=== PATIENT | male | born 1950 | race Caucasian/White ===

== ENCOUNTER 2017-01-13 17:37 | Outpatient (CLI) | payer MEDICARE, OTHER ==
[2017-01-13 13:32] LABS: BASOPHILS # (AUTO) 0.1 10^3/uL (0.0-0.1); BASOPHILS % (AUTO) 2.3 %; EOSINOPHILS # (AUTO) 0.1 10^3/uL (0.0-0.7); EOSINOPHILS % (AUTO) 2.7 %; HGB - HEMOGLOBIN 15.1 g/dL (14.0-18.0); LYMPHOCYTES # (AUTO) 1.4 10^3/uL (1.5-3.5); LYMPHOCYTES % (AUTO) 27.4 %; MEAN CORPUSCULAR HEMOGLOBIN 30.6 pg (27.0-31.0); MEAN CORPUSCULAR HGB CONC 34.4 g/dL (32.0-36.0); MEAN CORPUSCULAR VOLUME 89.1 fL (80.0-94.0); MEAN PLATELET VOLUME 8.1 fL (7.4-11.4); MONOCYTES # (AUTO) 0.5 10^3/uL (0.0-1.0); MONOCYTES % (AUTO) 10.6 %; NEUTROPHILS # (AUTO) 2.8 10^3/uL (1.5-6.6); NUCLEATED RED BLOOD CELLS AUTO 0.2 /100WBC; RED BLOOD COUNT 4.94 10^6/uL (4.70-6.10); RED CELL DISTRIBUTION WIDTH 13.6 % (12.0-15.0)
[2017-01-13 13:43] LABS: ALBUMIN/GLOBULIN RATIO 1.3 (1.0-2.2); BILIRUBIN,TOTAL 0.8 mg/dL (0.2-1.0); BUN - BLOOD UREA NITROGEN 18 mg/dL (6-20); CALCIUM 8.9 mg/dL (8.5-10.3); CARBON DIOXIDE - CO2 29 mmol/L (21-32); CHLORIDE 108 mmol/L (101-111); CHOL/HDL RATIO 3.6 (<5.0); CHOLESTEROL 155 mg/dL; CREATININE 0.8 mg/dL (0.6-1.2); GFR - MDRD 96 (>89); GLUCOSE 118 mg/dL (70-100); HDL CHOLESTEROL 43 mg/dL; POTASSIUM 4.3 mmol/L (3.5-5.0); SODIUM 141 mmol/L (135-145); TOTAL PROTEIN 7.4 g/dL (6.7-8.2); TRIGLYCERIDES 136 mg/dL; URIC ACID 5.8 mg/dL (2.6-7.2); VLDL CHOLESTEROL 27 mg/dL
[2017-01-13 14:07] LABS: HEMOGLOBIN A1C 0.64 g/dL
== END 2017-01-13 17:38 | disposition home or self-care (01) ==
LOC: LAB.WCP 17:37
PROVIDERS: ATTEND Family Medicine
DX: R73.01 Impaired fasting glucose (principal); E78.5 Hyperlipidemia, unspecified; Z12.5 Encounter for screening for malignant neoplasm of prostate; E03.9 Hypothyroidism, unspecified; M10.00 Idiopathic gout, unspecified site; I10 Essential (primary) hypertension
CPT/HCPCS: 36415; 80053; 80061; 83036; 84443; 84550; 85025; G0103; 84153

== ENCOUNTER 2017-02-23 09:07 | Day surgery (SDC) | payer MEDICARE, OTHER ==
[2017-02-23] MEDS ORDERED: LACTATED RINGERS 1,000 ML IV ONE (09:27)
[2017-02-23] MEDS ORDERED: MIDAZOLAM 2 MG/2 ML VIAL IVP ONE (10:08)
[2017-02-23] MEDS ORDERED: fentaNYL 100 MCG/2 ML VIAL IVP ONE (10:08)
--- NOTE | 2017-02-23 11:07 | PROCEDURE REPORT ---
DATE OF PROCEDURE: 02/23/2017 00:00:00 PROCEDURE PERFORMED: Colonoscopy with polypectomy. ENDOSCOPIST: Aster Redmond MD. PRIMARY CARE: Peter Bond MD. INDICATION: History of polyps. PREMEDICATIONS: Fentanyl 100 mcg, Versed 6 mg IV titration. TOTAL SEDATION TIME: 32 minutes. After informed consent was obtained, the patient was placed in left lateral decubitus position. The v ideo colonoscope was introduced in the rectum, slowly advanced to the cecum. On slow withdrawal, muco sa was carefully examined. The patient tolerated the procedure well. BLOOD LOSS: None. COMPLICATIONS: None. FINDINGS 1. A 4 mm polyp at the hepatic flexure jumbo biopsied and removed completely. 2. An 8 mm polyp at 50 cm, cold snared and removed completely and retrieved. 3. An 8 mm polyp at 30 cm, cold snared and removed completely and retrieved. The patient will be informed of specimen findings, but almost certainly will need followup colonoscop y in 3 years. JOB #: [id number] EXT JOB #:[id number]
[2017-02-23 11:36] VITALS: BP 134/71
== END 2017-02-23 09:08 | disposition home or self-care (01) ==
LOC: SDS 09:07
PROVIDERS: ATTEND Internal Medicine Gastroenterology
PROC: 0DBN8ZX Excision of Sigmoid Colon, Via Natural or Artificial Opening Endoscopic, Diagnostic (ICD-10-PCS; 2017-02-23)
PROC: 0DBE8ZX Excision of Large Intestine, Via Natural or Artificial Opening Endoscopic, Diagnostic (ICD-10-PCS; principal; 2017-02-23 10:00)
DX: D12.5 Benign neoplasm of sigmoid colon (principal); D12.3 Benign neoplasm of transverse colon
CPT/HCPCS: 45380; 45385; 88305; J7120

== ENCOUNTER 2017-07-16 09:27 | Outpatient (CLI) | payer MEDICARE, OTHER ==
--- NOTE | 2017-07-16 18:38 | CT Report ---
EXAM: CT CHEST EXAM DATE: 07/16/2017 09:54 AM. CLINICAL HISTORY: COUGH, CHRONIC. COMPARISONS: None. TECHNIQUE: Routine helical CT imaging was performed through the chest. IV contrast: None. Reconstruct ions: Coronal and sagittal. In accordance with CT protocol optimization, one or more of the following dose reduction techniques w ere utilized for this exam: automated exposure control, adjustment of mA and/or KV based on patient s ize, or use of iterative reconstructive technique. FINDINGS: Detail is limited by motion artifact. Lungs/Pleura: Lungs are well expanded. There is increased AP diameter chest. There is no evidence of consolidation or effusion. No suspicious lung nodules are seen. There is some mild scarring within th e left lung base. There is focal calcification along the left diaphragm. This could be from prior inf ection or trauma. No central airway abnormalities are seen. No pneumothorax. Mediastinum: There is mild aneurysmal dilatation of the ascending thoracic aorta. It measures 4.2 cm in maximal AP diameter. Heart size is normal. There are coronary artery calcifications. There are no enlarged thoracic lymph nodes. Bones: No acute bony abnormalities are seen. Visualized Abdomen: Unremarkable. Other: None. IMPRESSION: 1. No acute or chronic pulmonary process to account for the patient's presentation. 2. There is mild scarring within the left lung base adjacent to some coarse diaphragmatic calcificati on. This may be from prior infection or trauma. 3. There is mild aneurysmal dilatation of the ascending thoracic aorta. It measures 4.2 cm in maximal AP diameter. [facility] Referring Provider Line: [phone] SITE ID: [id number]
== END 2017-07-16 09:28 | disposition home or self-care (01) ==
LOC: DI 09:27
PROVIDERS: ATTEND Family Medicine
DX: R05 Cough (principal); I71.2 Thoracic aortic aneurysm, without rupture
CPT/HCPCS: 71250

== ENCOUNTER 2017-08-29 08:00 | Outpatient (CLI) | payer MEDICARE, OTHER ==
[2017-08-29 13:07] LABS: CALCIUM 9.1 mg/dL (8.5-10.3); CREATININE 0.9 mg/dL (0.6-1.2)
== END 2017-08-29 08:01 | disposition home or self-care (01) ==
LOC: LAB.WCP 08:00
PROVIDERS: ATTEND Family Medicine
DX: I10 Essential (primary) hypertension (principal)
CPT/HCPCS: 36415; 80048

== ENCOUNTER 2018-02-20 10:33 | Outpatient (CLI) | payer MEDICARE, OTHER ==
[2018-02-20 19:06] LABS: BASOPHILS # (AUTO) 0.1 10^3/uL (0.0-0.1); BASOPHILS % (AUTO) 1.6 %; EOSINOPHILS # (AUTO) 0.1 10^3/uL (0.0-0.7); EOSINOPHILS % (AUTO) 2.4 %; HGB - HEMOGLOBIN 14.6 g/dL (14.0-18.0); LYMPHOCYTES # (AUTO) 1.2 10^3/uL (1.5-3.5); MEAN CORPUSCULAR HGB CONC 34.2 g/dL (32.0-36.0); MEAN CORPUSCULAR VOLUME 90.8 fL (80.0-94.0); MEAN PLATELET VOLUME 8.3 fL (7.4-11.4); MONOCYTES # (AUTO) 0.5 10^3/uL (0.0-1.0); MONOCYTES % (AUTO) 9.8 %; NEUTROPHILS # (AUTO) 3.2 10^3/uL (1.5-6.6); NEUTROPHILS % (AUTO) 63.2 %; PLT - PLATELET COUNT 233 10^3/uL (130-450); RED CELL DISTRIBUTION WIDTH 13.4 % (12.0-15.0); WHITE BLOOD COUNT 5.1 x10^3/uL (4.8-10.8)
[2018-02-20 19:17] LABS: ALBUMIN 4.3 g/dL (3.2-5.5); ALBUMIN/GLOBULIN RATIO 1.7 (1.0-2.2); ALKALINE PHOSPHATASE 64 IU/L (42-121); ALT ALANINE AMINOTRANSFERASE 29 IU/L (10-60); AST ASPARTATE AMINOTRANSFERASE 26 IU/L (10-42); BILIRUBIN,TOTAL 0.7 mg/dL (0.2-1.0); BUN - BLOOD UREA NITROGEN 7 mg/dL (6-20); CALCIUM 9.2 mg/dL (8.5-10.3); CARBON DIOXIDE - CO2 30 mmol/L (21-32); CHLORIDE 103 mmol/L (101-111); CHOL/HDL RATIO 2.2 (<5.0); CHOLESTEROL 92 mg/dL; CREATININE 0.8 mg/dL (0.6-1.2); GFR - MDRD 96 (>89); GLUCOSE 105 mg/dL (70-100); HDL CHOLESTEROL 42 mg/dL; LDL CHOLESTEROL,CALCULATED 36 mg/dL; LDL/HDL RATIO 0.9 (<3.6); SODIUM 141 mmol/L (135-145); TOTAL PROTEIN 6.9 g/dL (6.7-8.2); VLDL CHOLESTEROL 14 mg/dL
[2018-02-20 19:18] LABS: HB2 TOTAL 15.7 g/dL; HEMOGLOBIN A1C 0.58 g/dL; HEMOGLOBIN A1C % 5.5 % (4.6-6.2); PSA SCREEN (Z12.5) 0.747 ng/mL (0.000-2.000)
[2018-02-20 19:22] LABS: FREE T3 2.91 pg/mL (2.5-3.9)
[2018-02-20 19:23] LABS: THYROID STIMULATING HORMONE 1.44 uIU/mL (0.34-5.60)
[2018-02-20 19:25] LABS: FREE T4 (FREE THYROXINE) 0.75 ng/dL (0.58-1.64)
== END 2018-02-20 10:34 | disposition home or self-care (01) ==
LOC: LAB.WCP 10:33
PROVIDERS: ATTEND Family Medicine
DX: R73.01 Impaired fasting glucose (principal); I10 Essential (primary) hypertension; Z12.5 Encounter for screening for malignant neoplasm of prostate; E78.5 Hyperlipidemia, unspecified; E03.9 Hypothyroidism, unspecified
CPT/HCPCS: 36415; 80053; 80061; 83036; 84439; 84443; 84481; 85025; G0103; 83721; 84153

== ENCOUNTER 2018-08-28 11:00 | Outpatient (CLI) | payer MEDICARE, OTHER ==
--- NOTE | 2018-08-28 12:38 | XRAY Report ---
Reason: URI Procedure Date: 08/28/2018 Accession Number: [id number] / [id number] Procedure: XR - Chest 2 View X-Ray CPT Code: 10460 FULL RESULT: EXAM: CHEST RADIOGRAPHY EXAM DATE: 08/28/2018 11:12 AM. CLINICAL HISTORY: Upper respiratory infection. COMPARISON: CHEST 2 VIEW PA/LAT 06/30/2017 8:30 AM. TECHNIQUE: 2 views. FINDINGS: Lungs/Pleura: No focal opacities evident. No pleural effusion. No pneumothorax. Normal volumes. Mediastinum: Stable appearance of the cardiomediastinal silhouette, reportedly with known thoracic aneurysm. Other: None. IMPRESSION: No acute airspace disease. [facility]
== END 2018-08-28 11:01 | disposition home or self-care (01) ==
LOC: DI 11:00
PROVIDERS: ATTEND Physician Assistant Medical
DX: J06.9 Acute upper respiratory infection, unspecified (principal)
CPT/HCPCS: 71046

== ENCOUNTER 2019-01-03 17:00 | Observation (INO) | payer MEDICARE, OTHER ==
[2019-01-03 17:40] LABS: BASOPHILS # (AUTO) 0.1 10^3/uL (0.0-0.1); BASOPHILS % (AUTO) 0.5 %; LYMPHOCYTES # (AUTO) 0.7 10^3/uL (1.5-3.5); LYMPHOCYTES % (AUTO) 5.3 %; MEAN CORPUSCULAR HEMOGLOBIN 30.8 pg (27.0-31.0); MEAN CORPUSCULAR HGB CONC 34.4 g/dL (32.0-36.0); MEAN CORPUSCULAR VOLUME 89.4 fL (80.0-94.0); MEAN PLATELET VOLUME 9.2 fL (7.4-11.4); MONOCYTES # (AUTO) 0.5 10^3/uL (0.0-1.0); MONOCYTES % (AUTO) 3.5 %; NEUTROPHILS # (AUTO) 11.6 10^3/uL (1.5-6.6); NEUTROPHILS % (AUTO) 90.2 %; PLT - PLATELET COUNT 245 10^3/uL (130-450); RED CELL DISTRIBUTION WIDTH 13.1 % (12.0-15.0); WHITE BLOOD COUNT 12.9 x10^3/uL (4.8-10.8)
[2019-01-03 17:56] LABS: ALBUMIN 4.6 g/dL (3.2-5.5); ALBUMIN/GLOBULIN RATIO 1.4 (1.0-2.2); BILIRUBIN,TOTAL 0.7 mg/dL (0.2-1.0); CREATININE 0.8 mg/dL (0.6-1.2)
[2019-01-03] MEDS ORDERED: ONDANSETRON 4 MG/2 ML VIAL IVP STA (18:21)
[2019-01-03] MEDS ORDERED: SODIUM CHLORIDE 0.9% 1,000 ML IV ONE ×2 (18:21)
[2019-01-03] MEDS ORDERED: HYDROmorphone 1 MG/ML CARPUJECT IVP STA (18:21)
--- NOTE | 2019-01-03 18:22 | ED Physician Documentation ---
PD HPI ABD PAIN - Stated complaint Stated Complaint: VOM/FEVER - Chief complaint Chief Complaint: Abd Pain - History obtained from History obtained from: Patient, Family () - History of Present Illness Timing - onset: Other (68-year-old gentleman with long-standing history of umbilical hernia started vomiting at 10:00 this morning and has noted absent bowel movements and flatulence since then. He is vomited about 10-12 times. He has left and central abdominal pain. No history of abdominal surgeries.) Review of Systems Ten Systems: 10 systems reviewed and negative Constitutional: denies: Fever, Chills Respiratory: reports: Reviewed and negative GI: reports: Abdominal Pain, Nausea, Vomiting. denies: Diarrhea, Hematemesis, Bloody / black stool : denies: Dysuria, Frequency PD PAST MEDICAL HISTORY - Past Medical History Past Medical History: Yes Cardiovascular: Hypertension, Other Respiratory: None Endocrine/Autoimmune: HyPOthyroidism GI: None : None HEENT: None Psych: None Musculoskeletal: Gout Derm: None Other Past Medical History: THoracic aneurysm - Past Surgical History Past Surgical History: Yes General: Colonoscopy HEENT: Detached retina repair - Present Medications Home Medications: Ambulatory Orders Medication Instructions Recorded Confirmed Allopurinol 2 tab PO DAILY 02/01/14 02/23/17 Levothyroxine [Synthroid] 125 mcg PO QDAC 02/01/14 02/23/17 Aspirin [Aspir 81] 81 mg PO DAILY 02/04/14 02/23/17 Cholecalciferol (Vitamin D3) 1,000 unit PO DAILY 02/04/14 07/17/14 [Vitamin D3] Chromium 200 mcg PO DAILY 02/04/14 07/17/14 Garlic 2,500 mg PO DAILY 02/04/14 07/17/14 Vitamin B Complex [Vitamin B-100 1 each PO DAILY 02/04/14 07/17/14 Complex] Amlodipine Besylate 10 mg QPM 01/03/19 01/03/19 Atorvastatin Calcium 40 mg QPM 01/03/19 01/03/19 Losartan Potassium [Cozaar] 100 mg DAILY 01/03/19 01/03/19 - Allergies Allergies/Adverse Reactions: Allergies Allergy/AdvReac Type Severity Reaction Status Date / Time No Known Drug Allergies Allergy Verified 01/03/19 17:14 - Living Situation Living Situation: reports: With spouse/s.o. - Social History Does the pt smoke?: No Smoking Status: Never smoker - Family History Family history: reports: Non contributory PD ED PE NORMAL - Vitals Vital signs reviewed: Yes - General General: Alert and oriented X 3, No acute distress - HEENT HEENT: PERRL, EOMI - Neck Neck: Supple, no meningeal sign, No bony TTP - Cardiac Cardiac: RRR, No murmur - Respiratory Respiratory: No respiratory distress, Clear bilaterally - Abdomen Abdomen: Other (Soft belly but there is a clearly incarcerated large umbilical hernia that I am unable to reduce during examination, it is tender with absent bowel tones.) - Back Back: No CVA TTP, No spinal TTP - Derm Derm: Normal color, Warm and dry - Extremities Extremities: No edema, No calf tenderness / cord - Neuro Neuro: Alert and oriented X 3, Normal speech Results - Vitals Vitals: Vital Signs - 24 hr 01/03/19 17:08 Temperature 36.2 C L Heart Rate 78 Respiratory 20 Rate Blood Pressure 166/77 H O2 Saturation 95 Oxygen O2 Source Room air - EKG (time done) 1834 Rate: Rate (enter#) (58) Rhythm: NSR [place]: Normal Intervals: Normal ID QRS: LVH Ischemia: Non specific changes Computer interpretation: Agree with computer - Labs Labs: Laboratory Tests 01/03/19 01/03/19 17:34 17:34 WBC 12.9 H RBC 5.20 Hgb 16.0 Hct 46.5 MCV 89.4 MCH 30.8 MCHC 34.4 RDW 13.1 Plt Count 245 MPV 9.2 Neut # (Auto) 11.6 H Lymph # (Auto) 0.7 L [place] # (Auto) 0.5 Eos # (Auto) 0.0 Baso # (Auto) 0.1 Absolute Nucleated RBC 0.00 Nucleated RBC % 0.0 Sodium 144 Potassium 4.2 Chloride 104 Carbon Dioxide 25 Anion Gap 15.0 H BUN 17 Creatinine 0.8 Estimated GFR (MDRD) 96 Glucose 156 H Calcium 10.0 Total Bilirubin 0.7 AST 26 ALT 29 Alkaline Phosphatase 79 Total Protein 8.0 Albumin 4.6 Globulin 3.4 Albumin/Globulin Ratio 1.4 Lipase 22 PD MEDICAL DECISION MAKING - ED course ED course: This is a very pleasant 68-year-old gentleman who presents with a clearly incarcerated small bowel obstruction due to a hernia. I spoke with the on-call surgeon, Dr. Menjivar after my evaluation and she will be in to see the patient and likely take him to the operating room. Departure - Departure Disposition: ED Transfer to [facility] Clinical Impression: Incarcerated umbilical hernia, Small bowel obstruction Condition: Serious
[2019-01-03] MEDS ORDERED: ceFAZolin 2 GM in SODIUM CHLORIDE 0.9% 100ML 100 ML IV STA (18:39)
--- NOTE | 2019-01-03 18:54 | HISTORY & PHYSICAL EXAMINATION ---
HPI - Admitted From Admitted from: ED - History Obtained From Records Reviewed: RN notes reviewed, Old records reviewed History obtained from: Patient Exam limitations: No limitations - History of Present Illness Pain/Problem Location Description: Abdominal pain with nausea and vomiting Severity at the worst: reports: Moderate Pain Quality: reports: Aching, Cramping Context-Pain started w/: reports: Rest Timing: reports: Abrupt onset Duration: reports: Hours: (8 hours) Improved with: reports: Rest, Nothing Worsened by: reports: Inspiration, Movement, Palpation Associated symptoms: reports: Nausea, Vomiting HPI Comment/Other: Quirino is a very pleasant man who presented to the ED with complaint of nausea and vomiting. He reports a long history of an umbilical hernia. He noted this morning that it was "stuck in place" and he began to feel nauseated and vomit. He reports he has vomited 12 times since it started this morning around 10 AM. He denies any sick contacts. He denies any fever. PMH/PSH - Past Medical History Cardiovascular: positive: Hypertension, Other Respiratory: positive: None Endocrine/Autoimmune: positive: HyPOthyroidism GI: positive: None : positive: None HEENT: positive: None Psych: positive: None Musculoskeletal: positive: Gout Derm: positive: None MRSA Hx?: No Other Past Medical History: THoracic aneurysm - Past Surgical History General: positive: Colonoscopy HEENT: positive: Detached retina repair Social & Family Hx - Social History Does the pt smoke?: No Smoking Status: Never smoker - POLST POLST Status: Full Code Meds/Allgy - Home Medications Home Medications: Ambulatory Orders Medication Instructions Recorded Confirmed Allopurinol 2 tab PO DAILY 02/01/14 02/23/17 Levothyroxine [Synthroid] 125 mcg PO QDAC 02/01/14 02/23/17 Aspirin [Aspir 81] 81 mg PO DAILY 02/04/14 02/23/17 Cholecalciferol (Vitamin D3) 1,000 unit PO DAILY 02/04/14 07/17/14 [Vitamin D3] Chromium 200 mcg PO DAILY 02/04/14 07/17/14 Garlic 2,500 mg PO DAILY 02/04/14 07/17/14 Vitamin B Complex [Vitamin B-100 1 each PO DAILY 02/04/14 07/17/14 Complex] Amlodipine Besylate 10 mg QPM 01/03/19 01/03/19 Atorvastatin Calcium 40 mg QPM 01/03/19 01/03/19 Losartan Potassium [Cozaar] 100 mg DAILY 01/03/19 01/03/19 - Allergies Allergies/Adverse Reactions: Allergies Allergy/AdvReac Type Severity Reaction Status Date / Time No Known Drug Allergies Allergy Verified 01/03/19 17:14 Review of Systems - Constitutional Constitutional: denies: Fever, Chills - Eyes Eyes: denies: Pain, Irritation, Blurred vision - Ears, Nose & Throat Ears, Nose & Throat: denies: Tinnitus, Vertigo - Cardiovascular Cariovascular: denies: Irregular heart rate, Palpitations, Chest pain, Edema, Lightheadedness - Respiratory Respiratory: denies: Cough, Wheezing, SOB at rest - Gastrointestinal Gastrointestinal: reports: Abdominal pain, Abdominal distention, Nausea, Vomiting, Bile emesis. denies: Tee blood emesis, Coffee grounds emesis, Reflux/heartburn - Genitourinary Genitourinary: denies: Dysuria, Frequency, Urgency - Musculoskeletal Musculoskeletal: denies: Muscle pain, Back pain, Muscle aches, Stiffness - Integumentary Integumentary: denies: Rash, Pruritis, Lesions - Neurological Neurological: denies: General weakness, Focal weakness - Psychiatric Psychiatric: denies: Depression, Anxiety - Hematologic/Lymphatic Hematologic/Lymphatic: denies: Anemia, Bruising - All Other Systems All Other Systems: reports: Reviewed and negative Exam - Vital Signs Reviewed Vital Signs: Yes Vital Signs: Vital Signs x48h Temp Pulse Resp BP Pulse Ox 01/03/19 17:08 36.2 C L 78 20 166/77 H 95 - Physical Exam General Appearance: positive: Mild distress Eyes Bilateral: positive: Normal inspection, PERRL, EOMI ENT: positive: ENT inspection nml, Pharynx nml, No signs of dehydration Neck: positive: Nml inspection, Thyroid nml, No JVD, Trachea midline Respiratory: positive: Chest non-tender, No respiratory distress, Breath sounds nml Cardiovascular: positive: Regular rate & rhythm, No murmur Peripheral Pulses: positive: 1+, 0, Other (Well perfused and without evidence of ischemia or tissue loss) Abdomen: positive: Tenderness, Mass (Obvious umbilical hernia with incarcerated contents. Bowel sounds over the hernia), Abnml bowel sounds. negative: Guarding, Rebound, Bruit Back: positive: Nml inspection. negative: CVA tenderness (R), CVA tenderness (L) Skin: positive: Color nml Extremities: positive: Non-tender Neurologic/Psychiatric: positive: Oriented x3, CN's nml (2-12) Results - Lab Results Fish Bones: 01/03/19 17:34 01/03/19 17:34 Other Lab Results: Lab Results x24hrs 01/03/19 01/03/19 Range/Units 17:34 17:34 WBC 12.9 H (4.8-10.8) x10^3/uL RBC 5.20 (4.70-6.10) 10^6/uL Hgb 16.0 (14.0-18.0) g/dL Hct 46.5 (42.0-52.0) % MCV 89.4 (80.0-94.0) fL MCH 30.8 (27.0-31.0) pg MCHC 34.4 (32.0-36.0) g/dL RDW 13.1 (12.0-15.0) % Plt Count 245 (130-450) 10^3/uL MPV 9.2 (7.4-11.4) fL Neut # (Auto) 11.6 H (1.5-6.6) 10^3/uL Lymph # (Auto) 0.7 L (1.5-3.5) 10^3/uL [place] # (Auto) 0.5 (0.0-1.0) 10^3/uL Eos # (Auto) 0.0 (0.0-0.7) 10^3/uL Baso # (Auto) 0.1 (0.0-0.1) 10^3/uL Absolute Nucleated RBC 0.00 x10^3/uL Nucleated RBC % 0.0 /100WBC Sodium 144 (135-145) mmol/L Potassium 4.2 (3.5-5.0) mmol/L Chloride 104 (101-111) mmol/L Carbon Dioxide 25 (21-32) mmol/L Anion Gap 15.0 H (6-13) BUN 17 (6-20) mg/dL Creatinine 0.8 (0.6-1.2) mg/dL Estimated GFR (MDRD) 96 (>89) Glucose 156 H (70-100) mg/dL Calcium 10.0 (8.5-10.3) mg/dL Total Bilirubin 0.7 (0.2-1.0) mg/dL AST 26 (10-42) IU/L ALT 29 (10-60) IU/L Alkaline Phosphatase 79 (42-121) IU/L Total Protein 8.0 (6.7-8.2) g/dL Albumin 4.6 (3.2-5.5) g/dL Globulin 3.4 (2.1-4.2) g/dL Albumin/Globulin Ratio 1.4 (1.0-2.2) Lipase 22 (22-51) U/L - Diagnostic Imaging Results Diagnostic Imaging Results Comments: No imaging required on the hernia. Chest xray is pending. Impression/Plan - Problem List Problem List: Incarcerated umbilical hernia with small bowel obstruction. We have discussed the risks and benefits of repair of the hernia and correction of the bowel obstruction. The patient has expressed understanding of the risks and a desire to complete the procedure. We will proceed to the operating room as soon as available.
--- NOTE | 2019-01-03 19:18 | XRAY Report ---
Reason: preop Procedure Date: 01/03/2019 Accession Number: [id number] / [id number] Procedure: XR - Chest 1 View X-Ray CPT Code: 12993 FULL RESULT: EXAM: CHEST RADIOGRAPHY EXAM DATE: 01/03/2019 06:54 PM. CLINICAL HISTORY: Preop. COMPARISON: CHEST 2 VIEW 08/28/2018 11:07 AM CHEST W/O 07/16/2017 9:45 AM. TECHNIQUE: 1 view. FINDINGS: Lungs/Pleura: No dense consolidation. No large effusion or pneumothorax. No pulmonary edema. Mediastinum: Heart and mediastinal contours are unremarkable. Other: None. IMPRESSION: No acute radiographic pulmonary abnormalities. [facility]
[2019-01-03] MEDS ORDERED: BUPIVACAINE 0.5%-EPI 1:200000 PF 30 ML VIAL ONE (20:09)
[2019-01-03] MEDS ORDERED: LIDOCAINE MPF 1%-EPI 1:200000 30 ML VIAL ONE (20:09)
[2019-01-03] MEDS ORDERED: BUPIVACAINE 0.5% PF 10 ML VIAL ONE (20:11)
--- NOTE | 2019-01-03 20:45 | ANESTHESIA ---
Pre-Anesthesia VS, & Labs - Diagnosis incarcerated umbilical hernia - Procedure Umbilical hernia repair with reduction of incarcerated bowel Vital Signs: Temp Pulse Resp BP Pulse Ox 37.0 C 68 15 140/69 H 96 01/03/19 18:51 01/03/19 18:51 01/03/19 18:51 01/03/19 18:51 01/03/19 18:51 Height 5 ft 9 in Weight (kg) 133.81 kg Body Mass Index 43.5 - NPO Last Food Intake: 0900 - Lab Results Current Lab Results: Laboratory Tests 01/03/19 17:34: Sodium 144, Potassium 4.2, Chloride 104, Carbon Dioxide 25, Anion Gap 15.0 H, BUN 17, Creatinine 0.8, Estimated GFR (MDRD) 96, Glucose 156 H , Calcium 10.0, Total Bilirubin 0.7, AST 26, ALT 29, Alkaline Phosphatase 79, Total Protein 8.0, Albumin 4.6, Globulin 3.4, Albumin/Globulin Ratio 1.4, Lipase 22 01/03/19 17:34: WBC 12.9 H, RBC 5.20, Hgb 16.0, Hct 46.5, MCV 89.4, MCH 30.8, MCHC 34.4, RDW 13.1, Plt Count 245, MPV 9.2, Neut # (Auto) 11.6 H, Lymph # (Auto) 0.7 L, [place] # (Auto) 0.5, Eos # (Auto) 0.0, Baso # (Auto) 0.1, Absolute Nucleated RBC 0.00, Nucleated RBC % 0.0 Fish Bones: 01/03/19 17:34 01/03/19 17:34 Home Medications and Allergies Home Medications: Ambulatory Orders Amlodipine Besylate 10 mg QPM 01/03/19 Atorvastatin Calcium 40 mg QPM 01/03/19 Losartan Potassium [Cozaar] 100 mg DAILY 01/03/19 Active Medications Sodium Chloride (Normal Saline 0.9%) 1,000 mls @ 150 mls/hr IV .Q6H40M ONE Stop: 01/04/19 01:00 Last Admin: 01/03/19 18:51 Dose: Not Given Allopurinol 2 tab PO DAILY 02/01/14 Levothyroxine [Synthroid] 125 mcg PO QDAC 02/01/14 Aspirin [Aspir 81] 81 mg PO DAILY 02/04/14 Cholecalciferol (Vitamin D3) [Vitamin D3] 1,000 unit PO DAILY 02/04/14 Chromium 200 mcg PO DAILY 02/04/14 Garlic 2,500 mg PO DAILY 02/04/14 Vitamin B Complex [Vitamin B-100 Complex] 1 each PO DAILY 02/04/14 Amlodipine Besylate 10 mg QPM 01/03/19 Atorvastatin Calcium 40 mg QPM 01/03/19 Losartan Potassium [Cozaar] 100 mg DAILY 01/03/19 Allergies/Adverse Reactions: Allergies Allergy/AdvReac Type Severity Reaction Status Date / Time No Known Drug Allergies Allergy Verified 01/03/19 17:14 Anes History & Medical History - Anesthetic History Anesthesia Complications: reports: No previous complications - Medical History Cardiovascular: reports: Hypertension, Other (Thoracic anneurysm) Pulmonary: reports: None, Other (snores) Gastrointestinal: reports: None Urinary: reports: None Neuro: reports: None Musculoskeletal: reports: Gout Endocrine/Autoimmune: reports: HyPOthyroidism, Other (borderline diabetic) Blood Disorders: reports: None Skin: reports: None Smoking Status: Never smoker Other Past Medical History: 4.5 cm Thoracic aneurysm - Surgical History General: Colonoscopy Eyes Ears Nose Throat (EENT): Detached retina repair Results - EKG Results EKG Comparison: Reviewed EKG Exam General: Alert, Oriented x3, Cooperative, No acute distress Dental: WNL (front crowns) Mouth Openin Fingerbreadth Neck Mobility: Normal Mallampati classification: II Thyromental Distance: greater than 6 cm Respiratory: Lungs clear, Normal breath sounds, No respiratory distress, No accessory muscle use Cardiovascular: Regular rate, Normal S1, Normal S2, No murmurs Mental/Cognitive Status: Alert/Oriented X3, Normal for patient Plan Anesthesia Type: General Consent for Procedure(s) Verified and Reviewed: Yes Code Status: Attempt Resuscitation ASA classification: 3-Severe systemic disease Is this case an emergency?: No
[2019-01-03] MEDS ORDERED: ceFAZolin 1 GM VIAL ONE (20:53)
[2019-01-03] MEDS ORDERED: SODIUM CHLORIDE 0.9% 100 ML IV ONE (21:08)
[2019-01-03] MEDS ORDERED: LACTATED RINGERS 1,000 ML IV ONE (21:17)
[2019-01-03] MEDS ORDERED: BUPIVACAINE 0.5% PF 30 ML VIAL SUBQ ONE ×2 (21:31)
[2019-01-03] MEDS ORDERED: SUGAMMADEX 200 MG/2 ML VIAL IVP ONE (21:55)
--- NOTE | 2019-01-03 22:29 | OPERATIVE REPORT ---
Operative Report - General Procedure Date: 01/03/19 Planned Procedure: Exploratory Laparotomy with Relief of Small Bowel Obstruction and Repair of Umbilical Hernia Pre-Op Diagnosis: Incarcerated Umbilical Hernia with Bowel Obstruction Procedure Performed: Exploratory Laparotomy with Lysys of Adhesions, Correction and Relief of Small Bowel Obstruction and Repair of Umbilical Hernia Post Op Diagnosis: Same - Procedure Note Primary Surgeon: Otto Anesthesia Provider: BOYD Walton Anesthesia Technique: General ET tube, Local Pathology: None Estimated Blood Loss (mL): 25 Findings: 3 cm umbilical defect containing normal omentum and a knuckle of edematous small bowel. Complications: None apparent - Other Other Information/Narrative: After obtaining informed consent, the patient is brought to the operating room and placed in the supine position on the operating table. Following successful induction of general endotracheal anesthesia, appropriate padding of all bony prominences, and placement of appropriate monitors, the abdomen is prepped and draped in the standard surgical fashion. A timeout was held per SCOAP protocol. Following infiltration with local anesthetic to create a field block, an incision was created directly over the visible and palpable hernia mass. This was carried gently down through the dermis of the skin revealing a mass of omentum and fluid.Errol fluid was aspirated from the hernia sac itself but there was no associated foul odor.Careful dissection was undertaken to free the contents of the hernia sac and so that the defect itself could be visualized. We were finally able to see a very edematous and injected loop of small bowel in the right lateral side of the hernia. This knuckle was approximately 3 cm. It was edematous but not necrotic and there was no associated foul odor. This was eased back into the abdominal cavity before continuing with any more dissection. We were able to identify the edges of this hernia as the hernia sac was carefully dissected free from the overlying skin and the underlying abdominal wall. The hernia itself proved to be approximately 3 cm in greatest diameter. Once it was defined, the entire wound was irrigated copiously with Ancef containing solution and aspirated free of all fluid and particulate matter. The hernia defect was closed with interrupted #1 Prolene suture.We discussed and considered the possibility of placing mesh over the closed incision. It was my judgment that there was a significant risk of contamination due to bacterial translocation from the obstructed bowel. For this reason, we elected to irrigate the incision carefully with antibiotic solution and avoided placing mesh. The incision was then closed in layers with Vicryl suture. The umbilicus was reconstructed in this way. The dermis was closed with Monocryl suture and a pressure dressing was applied to the skin. All sponge, needle, and instrument counts were correct at the conclusion of the case. The patient was allowed to awake from anesthesia without difficulty and taken to the post anesthesia care unit in good condition.
[2019-01-03] MEDS ORDERED: ACETAMINOPHEN 1,000 MG/100 ML 100 ML IV PRN (22:33)
[2019-01-03] MEDS ORDERED: ONDANSETRON 4 MG/2 ML VIAL IVP PRN (22:33)
[2019-01-03] MEDS ORDERED: HYDROmorphone 1 MG/ML CARPUJECT IVP PRN (22:33)
[2019-01-03] MEDS ORDERED: SODIUM CHLORIDE FLUSH 0.9% 10 ML SYRINGE IVP PRN (22:33)
[2019-01-03] MEDS ORDERED: ceFAZolin 2 GM in SODIUM CHLORIDE 0.9% 100ML 100 ML IV SCH (23:00)
[2019-01-04] MEDS: SODIUM CHLORIDE FLUSH 0.9% 10 ML SYRINGE IVP SCH ×2 (00:55→08:24)
[2019-01-04 02:18] LABS: BILIRUBIN,URINE NEGATIVE (NEGATIVE); GLUCOSE, URINE (UA) NEGATIVE (NEGATIVE); KETONES,URINE (UA) TRACE mg/dL (NEGATIVE); LEUKOCYTE ESTERASE, URINE NEGATIVE (NEGATIVE); NITRITE,URINE NEGATIVE (NEGATIVE); OCCULT BLOOD,URINE NEGATIVE (NEGATIVE); PROTEIN,URINE TRACE mg/dL (NEGATIVE); UROBILINOGEN,URINE 0.2 (NORMAL) E.U./dL (NORMAL)
[2019-01-04 02:19] LABS: CLARITY,URINE CLEAR (CLEAR)
[2019-01-04] MEDS: LACTATED RINGERS 1,000 ML IV SCH ×2 (02:51→14:18)
[2019-01-04] MEDS: ceFAZolin 2 GM in SODIUM CHLORIDE 0.9% 100ML 100 ML IV SCH ×2 (05:03→14:14)
[2019-01-04 05:51] LABS: BASOPHILS # (AUTO) 0.1 10^3/uL (0.0-0.1); BASOPHILS % (AUTO) 0.6 %; EOSINOPHILS % (AUTO) 0.3 %; HGB - HEMOGLOBIN 13.2 g/dL (14.0-18.0); LYMPHOCYTES # (AUTO) 1.4 10^3/uL (1.5-3.5); LYMPHOCYTES % (AUTO) 13.3 %; MEAN CORPUSCULAR HEMOGLOBIN 30.7 pg (27.0-31.0); MEAN CORPUSCULAR HGB CONC 33.5 g/dL (32.0-36.0); MEAN CORPUSCULAR VOLUME 91.6 fL (80.0-94.0); MEAN PLATELET VOLUME 9.4 fL (7.4-11.4); MONOCYTES # (AUTO) 1.2 10^3/uL (0.0-1.0); MONOCYTES % (AUTO) 11.5 %; NEUTROPHILS # (AUTO) 7.7 10^3/uL (1.5-6.6); NEUTROPHILS % (AUTO) 73.9 %; PLT - PLATELET COUNT 207 10^3/uL (130-450); RED CELL DISTRIBUTION WIDTH 13.2 % (12.0-15.0); WHITE BLOOD COUNT 10.5 x10^3/uL (4.8-10.8)
[2019-01-04 05:59] LABS: CALCIUM 8.7 mg/dL (8.5-10.3)
[2019-01-04] MEDS ORDERED: PANTOPRAZOLE 40 MG VIAL IVP SCH (07:00)
[2019-01-04] MEDS ORDERED: LEVOTHYROXINE 125 MCG TABLET PO SCH (07:00)
[2019-01-04] MEDS ORDERED: LOSARTAN 50 MG TABLET PO SCH (09:00)
[2019-01-04 11:07] VITALS: BP 102/59
[2019-01-04] MEDS ORDERED: ceFAZolin 2 GM in SODIUM CHLORIDE 0.9% 100ML 100 ML IV SCH (14:30)
--- NOTE | 2019-01-04 14:41 | Discharge Plan ---
Discharge Plan Problem Reviewed?: Yes Disposition: Home, Self Care Condition: Good Diet: Diabetic Activity Restrictions: Do not lift more than 10 pounds Shower Restrictions: No Driving Restrictions: Yes (Do not drive while taking narcotic pain medication) No Smoking: If you smoke, Please STOP! Call for help. Follow-up with: Peter Bond DO [Primary Care Provider] -
--- NOTE | 2019-01-04 14:45 | DISCHARGE SUMMARY ---
"Discharge Summary Admit Date: 01/03/19 Discharge Date: 01/04/19 Discharging Provider: Otto Code Status: Attempt Resuscitation Condition at Discharge: Good Discharge Disposition: 01 Home, Self Care - DIAGNOSES Admission Diagnoses: Incarcerated Umbilical Hernia with Bowel Obstruction Discharge Diagnoses with Status of Each Condition: Resolved - HPI History of Present Illness: Quirino presented to the ED yesterday complaining of several hours of abdominal pain with nausea and vomiting. He was nearly immediately diagnosed with incarcerated hernia with bowel obstruction. - CONSULTS | PROCEDURES Consultations: None Procedures: Exploratory Laparotomy with Lysis of Adhesions, Correction of Small Bowel Obstruction and Repair of Umbilical Hernia - HOSPITAL COURSE Hospital Course: Quirino was taken to the operating room for the procedure listed. He had minimal pain in the postoperative period and bowel function returned immediately. He is discharged to his home in the care of his . I will see him back in the office in 2 weeks. - ALLERGIES Allergies/Adverse Reactions: Allergies Allergy/AdvReac Type Severity Reaction Status Date / Time No Known Drug Allergies Allergy Verified 01/03/19 17:14 - MEDICATIONS Home Medications: Ambulatory Orders Medication Instructions Recorded Confirmed Allopurinol 2 tab PO DAILY 02/01/14 02/23/17 Levothyroxine [Synthroid] 125 mcg PO QDAC 02/01/14 02/23/17 Aspirin [Aspir 81] 81 mg PO DAILY 02/04/14 02/23/17 Cholecalciferol (Vitamin D3) 1,000 unit PO DAILY 02/04/14 07/17/14 [Vitamin D3] Chromium 200 mcg PO DAILY 02/04/14 07/17/14 Garlic 2,500 mg PO DAILY 02/04/14 07/17/14 Vitamin B Complex [Vitamin B-100 1 each PO DAILY 02/04/14 07/17/14 Complex] Amlodipine Besylate 10 mg QPM 01/03/19 01/03/19 Atorvastatin Calcium 40 mg QPM 01/03/19 01/03/19 Losartan Potassium [Cozaar] 100 mg DAILY 01/03/19 01/03/19 - PHYSICAL EXAM AT DISCHARGE General Appearance: positive: No acute distress Eyes Bilateral: positive: Normal inspection, PERRL, EOMI ENT: positive: ENT inspection nml, Pharynx nml, No signs of dehydration Neck: positive: Nml inspection, Thyroid nml, No JVD, Trachea midline Respiratory: positive: Chest non-tender, No respiratory distress, Breath sounds nml Cardiovascular: positive: Regular rate & rhythm, No murmur Peripheral Pulses: positive: 0 Abdomen: positive: Other (Soft, appropriately tender, no erythema and no drainage. Incision is well approximated) Back: positive: Nml inspection. negative: CVA tenderness (R), CVA tenderness (L) Skin: positive: Color nml Extremities: positive: Non-tender, Full ROM - LABS Result Diagrams: 01/04/19 05:30 01/04/19 05:30 - QUALITY (Female Hip Fx Only) Was patient sent home on osteoporosis medication?: No - FOLLOW UP Follow Up: [address] Menjivar at [facility] - TIME SPENT Time Spent in Discharge (Minutes): 30"
[2019-01-04] MEDS ORDERED: amLODIPine 5 MG TABLET PO SCH (21:00)
== END 2019-01-04 15:40 | disposition home or self-care (01) ==
LOC: ED 17:00 → SDS 18:30 → MS2 22:33
PROVIDERS: ADMIT Surgery; ATTEND Surgery
PROC: 0WQF0ZZ Repair Abdominal Wall, Open Approach (ICD-10-PCS; principal; 2019-01-03 19:54)
DX: K42.0 Umbilical hernia with obstruction, without gangrene (principal); I10 Essential (primary) hypertension; E03.9 Hypothyroidism, unspecified; I71.2 Thoracic aortic aneurysm, without rupture; M10.9 Gout, unspecified; R73.03 Prediabetes; E66.01 Morbid (severe) obesity due to excess calories; Z79.899 Other long term (current) drug therapy; Z68.41 Body mass index [BMI] 40.0-44.9, adult; Z79.82 Long term (current) use of aspirin
CPT/HCPCS: 36415; 49587; 71045; 80048; 80053; 81003; 83690; 85025; 93005; 99284; 99285; A9270; J1170; J7120; 81001; 87086

== ENCOUNTER 2019-03-01 08:00 | Outpatient (CLI) | payer MEDICARE, OTHER ==
[2019-03-01 12:01] LABS: BASOPHILS # (AUTO) 0.1 10^3/uL (0.0-0.1); BASOPHILS % (AUTO) 1.4 %; EOSINOPHILS # (AUTO) 0.2 10^3/uL (0.0-0.7); EOSINOPHILS % (AUTO) 3.6 %; HGB - HEMOGLOBIN 14.6 g/dL (14.0-18.0); LYMPHOCYTES # (AUTO) 1.4 10^3/uL (1.5-3.5); LYMPHOCYTES % (AUTO) 23.8 %; MEAN CORPUSCULAR HEMOGLOBIN 30.2 pg (27.0-31.0); MEAN CORPUSCULAR VOLUME 91.5 fL (80.0-94.0); MEAN PLATELET VOLUME 10.3 fL (7.4-11.4); MONOCYTES # (AUTO) 0.7 10^3/uL (0.0-1.0); MONOCYTES % (AUTO) 11.6 %; NEUTROPHILS # (AUTO) 3.5 10^3/uL (1.5-6.6); NEUTROPHILS % (AUTO) 58.9 %; PLT - PLATELET COUNT 229 10^3/uL (130-450); RED BLOOD COUNT 4.83 10^6/uL (4.70-6.10); RED CELL DISTRIBUTION WIDTH 13.6 % (12.0-15.0); WHITE BLOOD COUNT 5.9 x10^3/uL (4.8-10.8)
[2019-03-01 12:21] LABS: ALBUMIN 4.3 g/dL (3.2-5.5); ALBUMIN/GLOBULIN RATIO 1.3 (1.0-2.2); ALKALINE PHOSPHATASE 77 IU/L (42-121); ALT ALANINE AMINOTRANSFERASE 25 IU/L (10-60); AST ASPARTATE AMINOTRANSFERASE 23 IU/L (10-42); BILIRUBIN,TOTAL 0.9 mg/dL (0.2-1.0); BUN - BLOOD UREA NITROGEN 16 mg/dL (6-20); CALCIUM 9.2 mg/dL (8.5-10.3); CARBON DIOXIDE - CO2 27 mmol/L (21-32); CHLORIDE 103 mmol/L (101-111); CHOL/HDL RATIO 2.1 (<5.0); CHOLESTEROL 109 mg/dL; CREATININE 0.7 mg/dL (0.6-1.2); GFR - MDRD 111 (>89); GLUCOSE 116 mg/dL (70-100); HDL CHOLESTEROL 52 mg/dL; LDL CHOLESTEROL,CALCULATED 37 mg/dL; LDL/HDL RATIO 0.7 (<3.6); SODIUM 141 mmol/L (135-145); TOTAL PROTEIN 7.6 g/dL (6.7-8.2); URIC ACID 4.9 mg/dL (2.6-7.2); VLDL CHOLESTEROL 20 mg/dL
[2019-03-01 12:28] LABS: HB2 TOTAL 15.1 g/dL; HEMOGLOBIN A1C 0.59 g/dL; HEMOGLOBIN A1C % 5.7 % (4.6-6.2)
[2019-03-02 11:22] LABS: HEPATITIS C ANTIBODY NON-REACTIVE (NON-REACTIVE)
== END 2019-03-01 23:59 | disposition home or self-care (01) ==
LOC: LAB.WCP 08:00
PROVIDERS: ATTEND Family Medicine
DX: R73.01 Impaired fasting glucose (principal); E03.9 Hypothyroidism, unspecified; M10.9 Gout, unspecified; E78.5 Hyperlipidemia, unspecified; Z11.59 Encounter for screening for other viral diseases
CPT/HCPCS: 36415; 80053; 80061; 83036; 83721; 84443; 84550; 85025; 86803

== ENCOUNTER 2019-03-05 07:11 | Inpatient (IN) | payer MEDICARE, OTHER ==
[2019-03-05] MEDS ORDERED: ONDANSETRON 4 MG/2 ML VIAL IVP STA (07:48)
[2019-03-05] MEDS ORDERED: MORPHINE 2 MG/ML CARPUJECT IVP STA (07:48)
[2019-03-05] MEDS ORDERED: SODIUM CHLORIDE 0.9% 1,000 ML IV ONE (07:48)
--- NOTE | 2019-03-05 07:56 | ED Physician Documentation ---
PD HPI ABD PAIN - Stated complaint Stated Complaint: ABD PX - Chief complaint Chief Complaint: Abd Pain - History obtained from History obtained from: Patient - History of Present Illness Timing - onset: Yesterday Timing - duration: Days (1) Timing - details: Abrupt onset Pain level max: 5 Pain level now: 5 Severity Comments: moderate Quality: Pain, Other (feels like gas) Location: Epigastric Radiation: No: Chest, , Lower back, Left flank, Left shoulder, Other, Right flank, Right shoulder, Upper back Associated symptoms: Nausea, Vomiting. No: Fever, Hematemesis, Diarrhea, Constipation, Melena, Hematochezia, Dysuria, Hematuria, Chest pain, Dizzy, Testicular pain Similar symptoms before: No: Has not had sx before Recently seen: Surgery (patient had an inguinal L hernia repair in December) - Treatment prior to arrival Treatment prior to arrival: none - Additional information Additional information: Pt is passing gas. Had a BM at 3am that was normal Review of Systems Ten Systems: 10 systems reviewed and negative Constitutional: denies: Fever, Chills Throat: reports: Reviewed and negative Cardiac: reports: Reviewed and negative Respiratory: reports: Reviewed and negative GI: reports: Abdominal Pain, Nausea, Vomiting. denies: Constipation, Diarrhea, Hematemesis, Bloody / black stool : reports: Reviewed and negative Skin: reports: Reviewed and negative Immunocompromised: reports: Reviewed and negative PD PAST MEDICAL HISTORY - Past Medical History Past Medical History: Yes Cardiovascular: Hypertension, Other Respiratory: None, Other Neuro: None Endocrine/Autoimmune: HyPOthyroidism, Other GI: None : None HEENT: None Psych: None Musculoskeletal: Gout Derm: None - Past Surgical History Past Surgical History: Yes General: Colonoscopy HEENT: Detached retina repair - Present Medications Home Medications: Ambulatory Orders Medication Instructions Recorded Confirmed Allopurinol 200 mg PO QPM 02/01/14 03/05/19 Levothyroxine [Synthroid] 125 mcg PO QDAC 02/01/14 03/05/19 Aspirin [Aspir 81] 81 mg PO DAILY 02/04/14 03/05/19 Chromium 1,000 mcg PO DAILY 02/04/14 03/05/19 Amlodipine Besylate 10 mg PO QPM 01/03/19 03/05/19 Atorvastatin Calcium 40 mg PO QPM 01/03/19 03/05/19 Losartan Potassium [Cozaar] 100 mg PO DAILY 01/03/19 03/05/19 Albuterol Sulfate [Proair Hfa 1 puffs INH Q4H PRN 03/05/19 03/05/19 Inhaler] Multivitamin [Multivitamins] 1 cap PO DAILY 03/05/19 03/05/19 Tamsulosin [Flomax] 0.4 mg PO DAILY 03/05/19 03/05/19 - Allergies Allergies/Adverse Reactions: Allergies Allergy/AdvReac Type Severity Reaction Status Date / Time No Known Drug Allergies Allergy Verified 03/05/19 07:23 - Social History Does the pt smoke?: No Smoking Status: Never smoker - POLST POLST Status: Full Code PD ED PE NORMAL - Vitals Vital signs reviewed: Yes - General General: Alert and oriented X 3, No acute distress, Well developed/nourished - HEENT HEENT: Atraumatic, Moist mucous membranes - Neck Neck: Supple, no meningeal sign, No JVD - Cardiac Cardiac: RRR - Respiratory Respiratory: No respiratory distress - Abdomen Abdomen: Soft, Non tender, Non distended, Other (obese abdomen ) - Male Male : Deferred - Rectal Rectal: Deferred - Derm Derm: Normal color, Warm and dry, No rash - Extremities Extremities: No edema - Neuro Neuro: Alert and oriented X 3 Eye Opening: Spontaneous Motor: Obeys Commands Verbal: Oriented GCS Score: 15 - Psych Psych: Normal mood, Normal affect Results - Vitals Vitals: Vital Signs - 24 hr 03/05/19 03/05/19 07:19 09:57 Temperature 36.8 C Heart Rate 61 58 L Respiratory 12 18 Rate Blood Pressure 140/57 H 132/59 H O2 Saturation 95 93 Oxygen O2 Source Room air - Labs Labs: Laboratory Tests 03/05/19 03/05/19 03/05/19 08:00 08:00 08:00 WBC 10.4 RBC 4.65 L Hgb 14.0 Hct 41.8 L MCV 89.9 MCH 30.1 MCHC 33.5 RDW 13.3 Plt Count 201 MPV 9.6 Neut # (Auto) 8.6 H Lymph # (Auto) 0.4 L Hays # (Auto) 1.1 H Eos # (Auto) 0.2 Baso # (Auto) 0.1 Absolute Nucleated RBC 0.00 Nucleated RBC % 0.0 Sodium 140 Potassium 4.1 Chloride 101 Carbon Dioxide 26 Anion Gap 13.0 BUN 18 Creatinine 0.8 Estimated GFR (MDRD) 96 Glucose 186 H Lactic Acid 1.8 Calcium 9.2 Total Bilirubin 2.9 H AST 616 H ALT 376 H Alkaline Phosphatase 157 H Total Protein 7.2 Albumin 4.0 Globulin 3.2 Albumin/Globulin Ratio 1.3 Lipase 1989 H - Rads (name of study) US abdomen Radiology: Final report received, See rad report PD MEDICAL DECISION MAKING - ED course Complexity details: reviewed results, re-evaluated patient, considered differential, d/w patient, d/w family ED course: ddx- gastritis, pancreatitis, cholelithiasis, cholecystitis, gastroenteritis, SBO 68 y/o M 1 week s/p inguinal hernia repair now with vomiting, nausea, upper abdominal pain, tender epigastric with elevated lipase of almost 2000 thus given antiemetics, analgesics and obtained US to eval for GB disease. Pt noted to have a likely gallstone with sludge and a thickened GB wall but has a nontender abdomen after meds and is feeling better and without a fever thus pt has either cholelithiasis or early cholecystitis. I consulted surgery Dr. Yousif will see the pt as an inpatient and admitted pt to Medicine. He also has hyperglycemia which he has had before and likely needs evaluation for new onset Diabetes. Departure - Departure Disposition: [facility] DC/Xfer Clinical Impression: Hyperglycemia Pancreatitis due to biliary obstruction Qualifiers: Chronicity: acute Acute pancreatitis complication: unspecified Qualified Code(s): K85.10 - Biliary acute pancreatitis without necrosis or infection Condition: Stable Record reviewed to determine appropriate education?: Yes Discharge Date/Time: 03/05/19 13:42
[2019-03-05 08:19] LABS: BASOPHILS # (AUTO) 0.1 10^3/uL (0.0-0.1); BASOPHILS % (AUTO) 0.5 %; EOSINOPHILS # (AUTO) 0.2 10^3/uL (0.0-0.7); EOSINOPHILS % (AUTO) 2.3 %; LYMPHOCYTES # (AUTO) 0.4 10^3/uL (1.5-3.5); LYMPHOCYTES % (AUTO) 3.4 %; MEAN CORPUSCULAR HEMOGLOBIN 30.1 pg (27.0-31.0); MEAN CORPUSCULAR HGB CONC 33.5 g/dL (32.0-36.0); MEAN CORPUSCULAR VOLUME 89.9 fL (80.0-94.0); MEAN PLATELET VOLUME 9.6 fL (7.4-11.4); MONOCYTES # (AUTO) 1.1 10^3/uL (0.0-1.0); MONOCYTES % (AUTO) 10.3 %; NEUTROPHILS # (AUTO) 8.6 10^3/uL (1.5-6.6); PLT - PLATELET COUNT 201 10^3/uL (130-450); RED BLOOD COUNT 4.65 10^6/uL (4.70-6.10); RED CELL DISTRIBUTION WIDTH 13.3 % (12.0-15.0); WHITE BLOOD COUNT 10.4 x10^3/uL (4.8-10.8)
[2019-03-05 09:06] LABS: CALCIUM 9.2 mg/dL (8.5-10.3)
[2019-03-05 09:16] LABS: ALBUMIN/GLOBULIN RATIO 1.3 (1.0-2.2); BILIRUBIN,TOTAL 2.9 mg/dL (0.2-1.0); CREATININE 0.8 mg/dL (0.6-1.2); TOTAL PROTEIN 7.2 g/dL (6.7-8.2)
--- NOTE | 2019-03-05 12:01 | Ultrasound Report ---
Reason: RUQ pain, pancreatitis, eval for gallstones Procedure Date: 03/05/2019 Accession Number: [id number] / [id number] Procedure: US - Abdomen Limited CPT Code: FULL RESULT: EXAM: ABDOMEN LIMITED EXAM DATE: 03/05/2019 11:48 AM INDICATION: Right upper quadrant pain, pancreatitis, evaluate for gallstones. COMPARISONS: None available. TECHNIQUE: Real-time scanning was performed with static images obtained. FINDINGS: Liver: Liver parenchyma is heterogeneous and moderately hyperechoic. No discrete liver masses or intrahepatic bile duct dilation. However, evaluation for masses is limited secondary to the echogenicity. Right liver measures 23.1 cm. Main portal vein flow: Hepatopetal. Gallbladder: Possible non-mobile stone noted in the gallbladder neck. Extensive gallbladder debris. Incidental gallbladder wall thickening noted. No pericholecystic fluid. Negative sonographic John sign. Biliary System: CBD measures 16 mm. No intrahepatic bile duct dilation. Dilated common bile duct noted. Pancreas: Not well seen. Right kidney: 13.7 cm. No hydronephrosis. Abdominal aorta and IVC: Normal. Other: Study limited by bowel gas and body habitus. IMPRESSION: 1. Enlarged echogenic liver compatible with fatty infiltration. No mass. 2. Possible gallstone. Significant gallbladder sludge with gallbladder wall thickening. Negative sonographic John sign. 3. Dilated common bile duct measuring 1.6 cm. No common bile duct stone. Correlate with LFTs. Patient may benefit from outpatient examination with MRCP or CT with contrast. 4. Limited visualization of the pancreas. RADIA
[2019-03-05] MEDS ORDERED: ONDANSETRON 4 MG/2 ML VIAL IVP PRN (12:40)
[2019-03-05] MEDS ORDERED: HYDROmorphone 1 MG/ML CARPUJECT IVP PRN (12:40)
[2019-03-05] MEDS ORDERED: PROCHLORPERAZINE 10 MG/2 ML VIAL IVP PRN (12:40)
[2019-03-05] MEDS ORDERED: SODIUM CHLORIDE FLUSH 0.9% 10 ML SYRINGE IVP PRN (12:40)
[2019-03-05] MEDS: D5NS W/20 MEQ KCL 1,000 ML IV SCH ×2 (14:13→22:09)
[2019-03-05] MEDS: SODIUM CHLORIDE FLUSH 0.9% 10 ML SYRINGE IVP SCH (18:43)
[2019-03-06] MEDS: SODIUM CHLORIDE FLUSH 0.9% 10 ML SYRINGE IVP SCH ×2 (01:08→09:21)
--- NOTE | 2019-03-06 02:31 | HISTORY & PHYSICAL EXAMINATION ---
DATE OF SERVICE: 03/05/2019 Physician: Dedra Ritchie MD HISTORY OF PRESENT ILLNESS: This is a 68-year-old white male who has a history of obesity, borderline diabetes, which he manages with exercise and diet, hypertension, gout, hypothyroidism. The patient recently underwent umbilical hernia repair done here by Dr. Menjivar approximately two weeks ago. Everything was successful. This morning, the patient awoke with sudden abdominal pain in the mid and right abdomen and thought he was having another "hernia problem." He presented to the emergency room because of this. His exam, however, was significant for pain more localized to the right upper quadrant and abnormal labs consistent with pancreatitis. The patient had a bowel movement today that was normal, it was not associated with pain and he is passing gas. There is no drainage or pain around the umbilical area. PAST MEDICAL HISTORY 1. Obesity. 2. Borderline diabetes managed with exercise and diet. 3. COPD. 4. BPH. 5. Hyperlipidemia. 6. Hypertension. 7. Gout. 8. Hypothyroidism. ALLERGIES: NONE. MEDICATIONS 1. Albuterol inhaler p.r.n. 2. Flomax 0.4 mg daily. 3. Lipitor 40 mg every night. 4. Baby aspirin daily. 5. Amlodipine 10 mg every night. 6. Allopurinol 200 mg every night. 7. Multivitamin daily. 8. Synthroid 125 mcg daily. 9. Losartan 100 mg daily. SOCIAL HISTORY: The patient is a nonsmoker, who never smoked, drinks no alcohol. No illicit drug use. The patient is retired. FAMILY HISTORY: No inherited diseases. REVIEW OF SYSTEMS: A comprehensive review of systems was performed, the pertinent positives are listed above, the rest are negative. PHYSICAL EXAMINATION GENERAL: Obese white male. He is in no distress, supine in bed. VITAL SIGNS: Blood pressure 140/60, temperature elevated at 38.2, heart rate 70 and regular, respiratory rate 16, room air saturation 94%. HEENT: Unremarkable. NECK: Obese. CHEST: Clear. HEART: Normal heart sounds with no murmurs. ABDOMEN: Distended, obese with a pannus. He has normal bowel sounds in all four quadrants. He has no guarding or rebound. He is tender to moderate palpation in the right mid and upper quadrants. EXTREMITIES: No clubbing, cyanosis or edema. NEUROLOGIC: Grossly intact. LABORATORY DATA: Normal electrolytes. Normal BUN and creatinine. Normal lactic acid of 1.8, bilirubin 2.9, AST 616, ALT 376. Alkaline phosphatase 157. Lipase 1990. White blood count 10.4, hemoglobin 14, platelet count 201. No INR was done. IMAGING: Right upper quadrant ultrasound showed gallbladder sludge, a stone in the gallbladder neck, gallbladder wall thickening and no John sign. The liver is consistent with a fatty liver. IMPRESSION/DIAGNOSES 1. Gallstone pancreatitis. 2. Gallstones. 3. Borderline diabetes. 4. Hypothyroidism. 5. Hypertension. PLAN: Admit the patient to inpatient status. Begin bowel rest with n.p.o. status and IV fluids. Begin treatment for the gallstone with IV antibiotics. Monitor his LFTs and lipase daily. Continue with his medications for thyroid and blood pressure only, otherwise n.p.o. and advance diet as tolerated. DEEP VENOUS THROMBOSIS PROPHYLAXIS: SCDs. CODE STATUS: FULL CODE. ATTESTATION: The patient is expected to be discharged or transferred to another facility within 96 hours: Yes. TD: 03/05/2019 22:20 MTDIván
[2019-03-06 05:49] LABS: BASOPHILS % (AUTO) 0.5 %; EOSINOPHILS # (AUTO) 0.1 10^3/uL (0.0-0.7); EOSINOPHILS % (AUTO) 0.9 %; HGB - HEMOGLOBIN 12.6 g/dL (14.0-18.0); LYMPHOCYTES # (AUTO) 0.6 10^3/uL (1.5-3.5); LYMPHOCYTES % (AUTO) 10.9 %; MEAN CORPUSCULAR HEMOGLOBIN 29.7 pg (27.0-31.0); MEAN CORPUSCULAR HGB CONC 32.4 g/dL (32.0-36.0); MEAN CORPUSCULAR VOLUME 91.7 fL (80.0-94.0); MEAN PLATELET VOLUME 9.4 fL (7.4-11.4); MONOCYTES % (AUTO) 16.4 %; NEUTROPHILS # (AUTO) 4.1 10^3/uL (1.5-6.6); NEUTROPHILS % (AUTO) 70.6 %; PLT - PLATELET COUNT 164 10^3/uL (130-450); RED BLOOD COUNT 4.24 10^6/uL (4.70-6.10); WHITE BLOOD COUNT 5.8 x10^3/uL (4.8-10.8)
[2019-03-06] MEDS: D5NS W/20 MEQ KCL 1,000 ML IV SCH (05:55)
[2019-03-06 06:01] LABS: ALBUMIN 3.4 g/dL (3.2-5.5); ALBUMIN/GLOBULIN RATIO 1.1 (1.0-2.2); BILIRUBIN,TOTAL 5.1 mg/dL (0.2-1.0); CALCIUM 8.5 mg/dL (8.5-10.3); CREATININE 0.8 mg/dL (0.6-1.2); TOTAL PROTEIN 6.6 g/dL (6.7-8.2)
[2019-03-06] MEDS ORDERED: LEVOTHYROXINE 125 MCG TABLET PO SCH (07:00)
[2019-03-06 07:52] VITALS: BP 109/61
[2019-03-06] MEDS ORDERED: LOSARTAN 50 MG TABLET PO SCH (09:00)
[2019-03-06] MEDS ORDERED: cefTRIAXone 1 GM in SODIUM CHLORIDE 0.9% MINIBAG 100 ML IV SCH (09:00)
[2019-03-06 09:12] LABS: GLUCOSE, URINE (UA) NEGATIVE (NEGATIVE); KETONES,URINE (UA) NEGATIVE (NEGATIVE); LEUKOCYTE ESTERASE, URINE NEGATIVE (NEGATIVE); NITRITE,URINE NEGATIVE (NEGATIVE); OCCULT BLOOD,URINE NEGATIVE (NEGATIVE); PH,URINE 6.5 PH (5.0-7.5); PROTEIN,URINE NEGATIVE (NEGATIVE); UROBILINOGEN,URINE 2 E.U./dL (NORMAL)
[2019-03-06 09:13] LABS: BILIRUBIN,URINE LARGE (NEGATIVE); CLARITY,URINE CLEAR (CLEAR); ICTOTEST,URINE POSITIVE
[2019-03-06] MEDS ORDERED: metroNIDAZOLE 500 MG/100 ML 500 MG/100 ML BAG IV SCH (10:00)
[2019-03-06 10:41] LABS: INR 1.3 (0.8-1.2); PT - PROTHROMBIN TIME 15.1 secs (9.9-12.6)
--- NOTE | 2019-03-06 11:44 | DISCHARGE SUMMARY ---
Discharge Summary Admit Date: 03/06/19 Discharge Date: 03/07/19 Discharging Provider: Dr. Regino Briones Primary Care Provider: Dr. Peter Bond Code Status: Attempt Resuscitation Condition at Discharge: Stable Discharge Disposition: 02 Transfer Acute Care Hosp Discharge Facility Name: [facility] - DIAGNOSES Admission Diagnoses: Gallstone Pancreatitis Gallstones Borderline diabetes Hypothyroidism Hypertension Discharge Diagnoses with Status of Each Condition: Acute cholangitis - worsening Pancreatitis due to biliary obstruction - improving Transaminitis - worsening Hyerlipidemia - stable Hypertension - stable Hypothyroidism - stable - HPI History of Present Illness: Per Dr. Ritchie's H&P: This is a 68 year old white male who has a history of obesity, borderline diabetes, which he manages with exercise and diet, hypertension, gout, hypothyr oidism. The patient recently underwent umbilical hernia repair done here by Dr. Menjivar approximately two weeks ago. Everything was successful. This morning, the patient awoke with sudden abdominal pain in the mid and right abdomen and though he was having another "hernia problem." He presented to the emergency room because of this. His exam, however, was significant for pain more localized to the right upper quadrant and abnormal labs consistent with pancreatitis. The patient had a bowel movement today that was normal, it was not associated with pain and he is passing gas. There is no drainage or pain around the umbilical area. - HOSPITAL COURSE Hospital Course: He was admitted for gallstone pancreatitis and treated with IV hydration, bowel rest, and dilaudid IV. His pain resolved the following day and lipase returned to normal. His AST/ALT and also improved compared to admission but his T bili increased to >5 and he spiked a fever. He was fortunately not septic and his white count remained normal. Given the ultrasound findings which showed a CBD of 16mm, gallbladder sludge and wall thickening, there was concern for cholangitis and ERCP was likely required. I called [place] for transfer given that is where the patient has seen GI in the past but they had no beds available. I called [facility] and discussed the case with Dr Price who graciously accepted the patient for transfer. I called Dr. Mcrae who is the hospitalist for sign out. The patient's was updated on the plan of care. - ALLERGIES Allergies/Adverse Reactions: Allergies Allergy/AdvReac Type Severity Reaction Status Date / Time No Known Drug Allergies Allergy Verified 03/05/19 07:23 - MEDICATIONS Home Medications: Ambulatory Orders Medication Instructions Recorded Confirmed Allopurinol 200 mg PO QPM 02/01/14 03/05/19 Levothyroxine [Synthroid] 125 mcg PO QDAC 02/01/14 03/05/19 Aspirin [Aspir 81] 81 mg PO DAILY 02/04/14 03/05/19 Chromium 1,000 mcg PO DAILY 02/04/14 03/05/19 Amlodipine Besylate 10 mg PO QPM 01/03/19 03/05/19 Atorvastatin Calcium 40 mg PO QPM 01/03/19 03/05/19 Losartan Potassium [Cozaar] 100 mg PO DAILY 01/03/19 03/05/19 Albuterol Sulfate [Proair Hfa 1 puffs INH Q4H PRN 03/05/19 03/05/19 Inhaler] Multivitamin [Multivitamins] 1 cap PO DAILY 03/05/19 03/05/19 Tamsulosin [Flomax] 0.4 mg PO DAILY 03/05/19 03/05/19 - PHYSICAL EXAM AT DISCHARGE General Appearance: positive: No acute distress, Alert Eyes Bilateral: positive: Normal inspection ENT: positive: ENT inspection nml Neck: positive: Nml inspection Respiratory: positive: No respiratory distress, Wheezes, Rales Cardiovascular: positive: Regular rate & rhythm, No murmur. negative: Tachycardia, Bradycardia Abdomen: positive: Non-tender, No distention. negative: Tenderness, Guarding, Rebound, Abnml bowel sounds Skin: positive: Color nml, No rash, Warm, Dry Extremities: positive: Full ROM, No pedal edema Neurologic/Psychiatric: positive: Oriented x3, Motor nml. negative: Disoriented to person, Disoriented to place, Disoriented to time, Weakness - LABS Result Diagrams: 03/06/19 05:32 03/06/19 05:32 - DIAGNOSTIC IMAGING Diagnostic Imaging Results: Final report reviewed - TIME SPENT Time Spent in Discharge (Minutes): 50
--- NOTE | 2019-03-06 11:52 | PROVIDER PROGRESS NOTE ---
Subjective - Prog Note Date Prog Note Date: 03/13/19 - Subjective Pt reports feeling: Improved Subjective: He was febrile overnight with a temperature of 38.2 Reports feeling better today. Denies abdominal pain, nausea, and vomiting. Has been ambulating around the room without difficulty. He is passing gas but has not had a bowel movement. Current Medications - Current Medications Current Medications: Active Medications Hydromorphone HCl (Dilaudid Inj Carp) 1 mg IVP Q2HR PRN PRN Reason: Pain 8 to 10 Potassium Chloride/Dextrose/Sod Cl () 1,000 mls @ 125 mls/hr IV .Q8H [facility] Last Admin: 03/06/19 05:55 Dose: 125 mls/hr Ceftriaxone Sodium 1 gm/ (Sodium Chloride) 100 mls @ 200 mls/hr IV Q24H [facility] Last Infusion: 03/06/19 10:45 Dose: Infused Metronidazole (Flagyl 500 Mg/100 Ml) 500 mg in 100 mls @ 100 mls/hr IV Q8H [facility] Last Admin: 03/06/19 11:08 Dose: 100 mls/hr Levothyroxine Sodium (Synthroid) 125 mcg PO QDAC [facility] Last Admin: 03/06/19 05:59 Dose: 125 mcg Losartan Potassium (Cozaar) 100 mg PO DAILY [facility] Last Admin: 03/06/19 11:07 Dose: Not Given Ondansetron HCl (Zofran Inj) 4 mg IVP Q6HR PRN PRN Reason: Nausea / Vomiting Prochlorperazine Edisylate (Compazine Inj) 10 mg IVP Q6HR PRN PRN Reason: Nausea / Vomiting Sodium Chloride (Normal Saline Flush 0.9%) 10 ml IVP PRN PRN PRN Reason: NEEDED PER PROVIDER ORDERS Last Admin: 03/05/19 14:16 Dose: 10 ml Sodium Chloride (Normal Saline Flush 0.9%) 10 ml IVP 0100,0900,1700 [facility] Last Admin: 03/06/19 09:21 Dose: Not Given Allopurinol 200 mg PO QPM 02/01/14 Levothyroxine [Synthroid] 125 mcg PO QDAC 02/01/14 Aspirin [Aspir 81] 81 mg PO DAILY 02/04/14 Chromium 1,000 mcg PO DAILY 02/04/14 Amlodipine Besylate 10 mg PO QPM 01/03/19 Atorvastatin Calcium 40 mg PO QPM 01/03/19 Losartan Potassium [Cozaar] 100 mg PO DAILY 01/03/19 Albuterol Sulfate [Proair Hfa Inhaler] 1 puffs INH Q4H PRN 03/05/19 Multivitamin [Multivitamins] 1 cap PO DAILY 03/05/19 Tamsulosin [Flomax] 0.4 mg PO DAILY 03/05/19 Objective - Vital Signs/Intake & Output Reviewed Vital Signs: Yes Vital Signs: Vital Signs x48h Temp Pulse Resp BP Pulse Ox 03/06/19 07:51 36.5 C 56 L 18 109/61 94 Intake & Output: Intake & Output 03/03/19 03/04/19 03/05/19 03/06/19 23:59 23:59 23:59 23:59 Intake Total 2351.667 1070.833 Balance 2351.667 1070.833 - Objective General Appearance: positive: No acute distress, Alert Eyes Bilateral: positive: Normal inspection ENT: positive: ENT inspection nml Neck: positive: Nml inspection Respiratory: positive: No respiratory distress. negative: Wheezes, Rales, Rhonchi Cardiovascular: positive: Regular rate & rhythm. negative: Tachycardia, Bradycardia, Systolic murmur Abdomen: positive: Non-tender, Nml bowel sounds, No distention. negative: Tend erness, Guarding, Rebound, Abnml bowel sounds Skin: positive: No rash, Warm, Dry Extremities: positive: Non-tender, Full ROM, No pedal edema Neurologic/Psychiatric: positive: Oriented x3, Motor nml. negative: Disoriented to person, Disoriented to place, Disoriented to time, Weakness - Lab Results Fish Bones: 03/06/19 05:32 03/06/19 05:32 Other Labs: Lab Results x24hrs 03/06/19 03/06/19 03/06/19 Range/Units 10:27 08:30 05:32 WBC (4.8-10.8) x10^3/uL RBC (4.70-6.10) 10^6/uL Hgb (14.0-18.0) g/dL Hct (42.0-52.0) % MCV (80.0-94.0) fL MCH (27.0-31.0) pg MCHC (32.0-36.0) g/dL RDW (12.0-15.0) % Plt Count (130-450) 10^3/uL MPV (7.4-11.4) fL Neut # (Auto) (1.5-6.6) 10^3/uL Lymph # (Auto) (1.5-3.5) 10^3/uL [place] # (Auto) (0.0-1.0) 10^3/uL Eos # (Auto) (0.0-0.7) 10^3/uL Baso # (Auto) (0.0-0.1) 10^3/uL Absolute Nucleated RBC x10^3/uL Nucleated RBC % /100WBC PT 15.1 H (9.9-12.6) secs INR 1.3 H (0.8-1.2) Sodium 141 (135-145) mmol/L Potassium 4.0 (3.5-5.0) mmol/L Chloride 106 (101-111) mmol/L Carbon Dioxide 29 (21-32) mmol/L Anion Gap 6.0 (6-13) BUN 12 (6-20) mg/dL Creatinine 0.8 (0.6-1.2) mg/dL Estimated GFR (MDRD) 96 (>89) Glucose 131 H (70-100) mg/dL Calcium 8.5 (8.5-10.3) mg/dL Total Bilirubin 5.1 H (0.2-1.0) mg/dL AST 173 H (10-42) IU/L ALT 264 H (10-60) IU/L Alkaline Phosphatase 141 H (42-121) IU/L Total Protein 6.6 L (6.7-8.2) g/dL Albumin 3.4 (3.2-5.5) g/dL Globulin 3.2 (2.1-4.2) g/dL Albumin/Globulin Ratio 1.1 (1.0-2.2) Lipase 45 (22-51) U/L Urine Color DARK YELLOW Urine Clarity CLEAR (CLEAR) Urine pH 6.5 (5.0-7.5) PH Ur Specific [place] 1.020 (1.002-1.030) Urine Protein NEGATIVE (NEGATIVE) mg/dL Urine Glucose (UA) NEGATIVE (NEGATIVE) mg/dL Urine Ketones NEGATIVE (NEGATIVE) mg/dL Urine Occult Blood NEGATIVE (NEGATIVE) Urine Nitrite NEGATIVE (NEGATIVE) Urine Bilirubin LARGE H (NEGATIVE) Urine Urobilinogen 2 H (NORMAL) E.U./dL Ur Leukocyte Esterase NEGATIVE (NEGATIVE) Ur Microscopic Review NOT INDICATED Urine Culture Comments NOT INDICATED 03/06/19 Range/Units 05:32 WBC 5.8 (4.8-10.8) x10^3/uL RBC 4.24 L (4.70-6.10) 10^6/uL Hgb 12.6 L (14.0-18.0) g/dL Hct 38.9 L (42.0-52.0) % MCV 91.7 (80.0-94.0) fL MCH 29.7 (27.0-31.0) pg MCHC 32.4 (32.0-36.0) g/dL RDW 14.0 (12.0-15.0) % Plt Count 164 (130-450) 10^3/uL MPV 9.4 (7.4-11.4) fL Neut # (Auto) 4.1 (1.5-6.6) 10^3/uL Lymph # (Auto) 0.6 L (1.5-3.5) 10^3/uL [place] # (Auto) 1.0 (0.0-1.0) 10^3/uL Eos # (Auto) 0.1 (0.0-0.7) 10^3/uL Baso # (Auto) 0.0 (0.0-0.1) 10^3/uL Absolute Nucleated RBC 0.00 x10^3/uL Nucleated RBC % 0.0 /100WBC PT (9.9-12.6) secs INR (0.8-1.2) Sodium (135-145) mmol/L Potassium (3.5-5.0) mmol/L Chloride (101-111) mmol/L Carbon Dioxide (21-32) mmol/L Anion Gap (6-13) BUN (6-20) mg/dL Creatinine (0.6-1.2) mg/dL Estimated GFR (MDRD) (>89) Glucose (70-100) mg/dL Calcium (8.5-10.3) mg/dL Total Bilirubin (0.2-1.0) mg/dL AST (10-42) IU/L ALT (10-60) IU/L Alkaline Phosphatase (42-121) IU/L Total Protein (6.7-8.2) g/dL Albumin (3.2-5.5) g/dL Globulin (2.1-4.2) g/dL Albumin/Globulin Ratio (1.0-2.2) Lipase (22-51) U/L Urine Color Urine Clarity (CLEAR) Urine pH (5.0-7.5) PH Ur Specific [place] (1.002-1.030) Urine Protein (NEGATIVE) mg/dL Urine Glucose (UA) (NEGATIVE) mg/dL Urine Ketones (NEGATIVE) mg/dL Urine Occult Blood (NEGATIVE) Urine Nitrite (NEGATIVE) Urine Bilirubin (NEGATIVE) Urine Urobilinogen (NORMAL) E.U./dL Ur Leukocyte Esterase (NEGATIVE) Ur Microscopic Review Urine Culture Comments - Diagnostic Imaging Diagnostic Imaging Results: positive: Final report reviewed ABX Reporting Has patient been on IV antibiotics over the past 48 hours?: Yes Assessment/Plan - Problem List (1) Acute cholangitis Impression: Suspected cholangitis given his fever and ultrasound findings. He is not septic and is hemodynamically stable. Ultrasound revealed gallbladder sludge with gallbladder wall thickening. - Started Ceftriaxone and Flagyl today - Check blood cultures - Will likely require ERCP (2) Pancreatitis due to biliary obstruction Impression: Lipase is now within normal limits. Was nearly 2000 on admission. Abdominal pain resolved. - Maintain NPO status as he will likely require ERCP - IV hydration Qualifiers: Chronicity: acute Acute pancreatitis complication: unspecified Qualified Code(s): K85.10 - Biliary acute pancreatitis without necrosis or infection (3) Transaminitis Impression: T bili continues to increase but remaining LFT's improving. Likely secondary to obstruction. Ultrasound revealed dilated CBD of 1.6cm. - Trend LFT's - Will likely benefit from ERCP (4) Hyperlipidemia Impression: Continue home Lipitor. (5) Hypertension Impression: Remains normotensive. Will hold home Losartan as he is normotensive and concern for development of sepsis given the suspected cholangitis. (6) Hypothyroidism Impression: Continue home Synthroid.
[2019-03-06] MEDS ORDERED: LACTATED RINGERS 1,000 ML IV SCH (13:00)
== END 2019-03-06 14:55 | disposition short-term general hospital (02) | DRG 439 ==
LOC: ED 07:11 → MS2 12:34
PROVIDERS: ADMIT Internal Medicine; ATTEND Internal Medicine
DX: K85.10 Biliary acute pancreatitis without necrosis or infection (principal); R93.3 Abnormal findings on diagnostic imaging of other parts of digestive tract; R73.9 Hyperglycemia, unspecified; Z68.41 Body mass index [BMI] 40.0-44.9, adult; K74.3 Primary biliary cirrhosis; K80.20 Calculus of gallbladder without cholecystitis without obstruction; R73.03 Prediabetes; E03.9 Hypothyroidism, unspecified; I10 Essential (primary) hypertension; E78.5 Hyperlipidemia, unspecified; E66.9 Obesity, unspecified; Z79.899 Other long term (current) drug therapy; Z87.19 Personal history of other diseases of the digestive system; Z79.82 Long term (current) use of aspirin
CPT/HCPCS: 36415; 76705; 80053; 81003; 83605; 83690; 85025; 85610; 87040; 96374; 99285; A9270; J7120; 81001; 87086

== ENCOUNTER 2019-03-06 14:57 | Outpatient (CLI) | payer MEDICARE, OTHER | END 2019-03-06 14:58 | disposition short-term general hospital (02) | LOC: EMS 14:57 | PROVIDERS: ATTEND Surgery | DX: K83.09 Other cholangitis (principal); K85.90 Acute pancreatitis without necrosis or infection, unspecified | CPT/HCPCS: A0425; A0429 ==

== ENCOUNTER 2020-07-15 08:00 | Outpatient (CLI) | payer MEDICARE, OTHER ==
[2020-07-15 11:36] LABS: BASOPHILS # (AUTO) 0.1 10^3/uL (0.0-0.1); BASOPHILS % (AUTO) 1.4 %; EOSINOPHILS # (AUTO) 0.2 10^3/uL (0.0-0.7); EOSINOPHILS % (AUTO) 4.1 %; LYMPHOCYTES # (AUTO) 1.8 10^3/uL (1.5-3.5); LYMPHOCYTES % (AUTO) 30.9 %; MEAN CORPUSCULAR HEMOGLOBIN 30.4 pg (27.0-31.0); MEAN CORPUSCULAR HGB CONC 33.3 g/dL (32.0-36.0); MEAN CORPUSCULAR VOLUME 91.3 fL (80.0-94.0); MEAN PLATELET VOLUME 10.1 fL (7.4-11.4); MONOCYTES # (AUTO) 0.7 10^3/uL (0.0-1.0); NEUTROPHILS % (AUTO) 51.1 %; PLT - PLATELET COUNT 220 10^3/uL (130-450); RED BLOOD COUNT 4.93 10^6/uL (4.70-6.10); WHITE BLOOD COUNT 5.9 x10^3/uL (4.8-10.8)
[2020-07-15 12:27] LABS: ALBUMIN 4.3 g/dL (3.2-5.5); ALBUMIN/GLOBULIN RATIO 1.4 (1.0-2.2); ALKALINE PHOSPHATASE 86 IU/L (42-121); ALT ALANINE AMINOTRANSFERASE 17 IU/L (10-60); AST ASPARTATE AMINOTRANSFERASE 19 IU/L (10-42); BILIRUBIN,TOTAL 0.7 mg/dL (0.2-1.0); BUN - BLOOD UREA NITROGEN 14 mg/dL (6-20); CALCIUM 9.4 mg/dL (8.5-10.3); CARBON DIOXIDE - CO2 28 mmol/L (21-32); CHLORIDE 104 mmol/L (101-111); CHOL/HDL RATIO 1.9 (<5.0); CHOLESTEROL 88 mg/dL; CREATININE 0.9 mg/dL (0.6-1.2); GLUCOSE 99 mg/dL (70-100); HDL CHOLESTEROL 46 mg/dL; LDL CHOLESTEROL,CALCULATED 30 mg/dL; LDL/HDL RATIO 0.7 (<3.6); TOTAL PROTEIN 7.3 g/dL (6.7-8.2); VLDL CHOLESTEROL 12 mg/dL
[2020-07-15 13:17] LABS: HEMOGLOBIN A1c% 5.3 % (4.27-6.07)
== END 2020-07-15 23:59 | disposition home or self-care (01) ==
LOC: LAB.WCP 08:00
PROVIDERS: ATTEND Family Medicine
DX: E78.5 Hyperlipidemia, unspecified (principal); R73.01 Impaired fasting glucose; E03.9 Hypothyroidism, unspecified; I10 Essential (primary) hypertension
CPT/HCPCS: 36415; 80053; 80061; 83036; 83721; 84443; 85025

== ENCOUNTER 2020-08-20 10:04 | Outpatient (CLI) | payer MEDICARE, OTHER ==
[2020-08-20 12:20] LABS: BASOPHILS # (AUTO) 0.1 10^3/uL (0.0-0.1); BASOPHILS % (AUTO) 1.4 %; EOSINOPHILS # (AUTO) 0.2 10^3/uL (0.0-0.7); EOSINOPHILS % (AUTO) 3.2 %; HCT - HEMATOCRIT 43.9 % (42.0-52.0); HGB - HEMOGLOBIN 14.9 g/dL (14.0-18.0); LYMPHOCYTES # (AUTO) 1.5 10^3/uL (1.5-3.5); LYMPHOCYTES % (AUTO) 26.3 %; MEAN CORPUSCULAR HEMOGLOBIN 30.7 pg (27.0-31.0); MEAN CORPUSCULAR HGB CONC 33.9 g/dL (32.0-36.0); MEAN CORPUSCULAR VOLUME 90.3 fL (80.0-94.0); MEAN PLATELET VOLUME 9.7 fL (7.4-11.4); MONOCYTES # (AUTO) 0.6 10^3/uL (0.0-1.0); MONOCYTES % (AUTO) 11.1 %; NEUTROPHILS # (AUTO) 3.3 10^3/uL (1.5-6.6); NEUTROPHILS % (AUTO) 57.5 %; PLT - PLATELET COUNT 230 10^3/uL (130-450); RED BLOOD COUNT 4.86 10^6/uL (4.70-6.10); RED CELL DISTRIBUTION WIDTH 12.8 % (12.0-15.0); WHITE BLOOD COUNT 5.7 x10^3/uL (4.8-10.8)
[2020-08-20 12:37] LABS: ALBUMIN 4.4 g/dL (3.2-5.5); ALBUMIN/GLOBULIN RATIO 1.4 (1.0-2.2); BILIRUBIN,TOTAL 0.7 mg/dL (0.2-1.0); CALCIUM 9.6 mg/dL (8.5-10.3); CREATININE 0.8 mg/dL (0.6-1.2); POTASSIUM 4.2 mmol/L (3.5-5.0); TOTAL PROTEIN 7.5 g/dL (6.7-8.2)
== END 2020-08-20 23:59 | disposition home or self-care (01) ==
LOC: LAB.WCP 10:04
PROVIDERS: ATTEND Family Medicine
DX: K80.50 Calculus of bile duct without cholangitis or cholecystitis without obstruction (principal)
CPT/HCPCS: 36415; 80053; 85025

== ENCOUNTER 2021-09-18 20:34 | Emergency (ER) | payer MEDICARE, OTHER ==
[2021-09-18 20:48] VITALS: BP 153/59
--- NOTE | 2021-09-18 20:54 | ED Physician Documentation ---
PD HPI MALE - Stated complaint Stated Complaint: MALE - Chief complaint Chief Complaint: Wound - History obtained from History obtained from: Patient - History of Present Illness Timing - onset: Today (this evening) Timing - details: Abrupt onset Pain level max: 0 Pain level now: 0 Associated symptoms: Other (bleeding from scrotum). No: Testiclar pain, Scrotal swelling Similar symptoms before: Has not had sx before - Additional information Additional information: this evening after taking a shower, patient was drying himself with a towel when he noticed bleeding from scrotum. No h/o similar symptoms, no pain, denies injury. He is not taking any blood-thinning medication. Review of Systems : denies: Testicular pain Skin: denies: Rash, Abrasion (s), Laceration (s) PD PAST MEDICAL HISTORY - Past Medical History Cardiovascular: Hypertension, Other Respiratory: None, Other Neuro: None Endocrine/Autoimmune: HyPOthyroidism, Other GI: None : None HEENT: None Psych: None Musculoskeletal: Gout Derm: None Other Past Medical History: aortic thoracic aneursym. - Past Surgical History Past Surgical History: Yes General: Colonoscopy HEENT: Detached retina repair - Present Medications Home Medications: Ambulatory Orders Medication Instructions Recorded Confirmed Levothyroxine [Synthroid] 125 mcg PO QDAC 02/01/14 03/05/19 allopurinoL [Allopurinol] 200 mg PO QPM 02/01/14 03/05/19 Aspirin [Aspir 81] 81 mg PO DAILY 02/04/14 03/05/19 Chromium 1,000 mcg PO DAILY 02/04/14 03/05/19 Amlodipine Besylate 10 mg PO QPM 01/03/19 03/05/19 Atorvastatin Calcium 40 mg PO QPM 01/03/19 03/05/19 Losartan Potassium [Cozaar] 100 mg PO DAILY 01/03/19 03/05/19 Albuterol Sulfate [Proair Hfa 1 puffs INH Q4H PRN 03/05/19 03/05/19 Inhaler] Multivitamin [Multivitamins] 1 cap PO DAILY 03/05/19 03/05/19 Tamsulosin [Flomax] 0.4 mg PO DAILY 03/05/19 03/05/19 - Allergies Allergies/Adverse Reactions: Allergies Allergy/AdvReac Type Severity Reaction Status Date / Time No Known Drug Allergies Allergy Verified 04/29/22 20:51 - Social History Does the pt smoke?: No Smoking Status: Never smoker Does the pt drink ETOH?: No Does the pt have substance abuse?: No - Immunizations Immunizations: TDAP >10years/unknown - POLST POLST Status: Full Code PD ED PE NORMAL - Vitals Vital signs reviewed: Yes - General General: Alert and oriented X 3, No acute distress, Well developed/nourished - Male Male : Other (no active bleeding, but there is a punctate, raised varicosity on scrotum with blood on a paper towel that was covering the area with the blood on the paper towel lying directly over this varicosity (indicating this was the source of bleeding). no scrotal erythema, tenderness) Results - Vitals Vitals: Oxygen O2 Source Room air PD MEDICAL DECISION MAKING - ED course Complexity details: considered differential, d/w patient ED course: presents with bleeding scrotal varicosity that stopped bleeding by the time of this evaluation. Two layers of Dermabond placed on the varicosity with adequate drying time between layers. There was no recurrence of bleeding. Advised to follow up with primary care provider, return precautions discussed Departure - Departure Disposition: 01 Home, Self Care Clinical Impression: Varicose vein of scrotum Condition: Good Instructions: ED Veins Varicose Comments: You had a small varicose vein on your scrotum that was the source of the bleeding. I placed three layers of Dermabond (tissue adhesive) which should fall off like a scab after several days; this should be enough time for the vein to clot off. Discharge Date/Time: 09/18/21 21:31
== END 2021-09-18 21:31 | disposition home or self-care (01) ==
LOC: ED 20:34
DX: I86.1 Scrotal varices (principal); I10 Essential (primary) hypertension
CPT/HCPCS: 99281; 99282

== ENCOUNTER 2021-11-24 07:16 | Outpatient (CLI) | payer MEDICARE, OTHER ==
[2021-11-24 12:01] LABS: BASOPHILS # (AUTO) 0.1 10^3/uL (0.0-0.1); BASOPHILS % (AUTO) 1.2 %; EOSINOPHILS # (AUTO) 0.2 10^3/uL (0.0-0.7); EOSINOPHILS % (AUTO) 3.4 %; HCT - HEMATOCRIT 47.6 % (42.0-52.0); HGB - HEMOGLOBIN 15.9 g/dL (14.0-18.0); LYMPHOCYTES # (AUTO) 1.6 10^3/uL (1.5-3.5); LYMPHOCYTES % (AUTO) 27.5 %; MEAN CORPUSCULAR HEMOGLOBIN 30.8 pg (27.0-31.0); MEAN CORPUSCULAR HGB CONC 33.4 g/dL (32.0-36.0); MEAN CORPUSCULAR VOLUME 92.1 fL (80.0-94.0); MEAN PLATELET VOLUME 10.4 fL (7.4-11.4); MONOCYTES # (AUTO) 0.8 10^3/uL (0.0-1.0); MONOCYTES % (AUTO) 12.6 %; NEUTROPHILS # (AUTO) 3.3 10^3/uL (1.5-6.6); NEUTROPHILS % (AUTO) 54.8 %; PLT - PLATELET COUNT 218 10^3/uL (130-450); RED BLOOD COUNT 5.17 10^6/uL (4.70-6.10); RED CELL DISTRIBUTION WIDTH 12.7 % (12.0-15.0)
[2021-11-24 12:29] LABS: ALBUMIN 4.5 g/dL (3.2-5.5); ALBUMIN/GLOBULIN RATIO 1.6 (1.0-2.2); ALKALINE PHOSPHATASE 80 IU/L (42-121); ALT ALANINE AMINOTRANSFERASE 26 IU/L (10-60); AST ASPARTATE AMINOTRANSFERASE 20 IU/L (10-42); BILIRUBIN,TOTAL 0.7 mg/dL (0.2-1.0); BUN - BLOOD UREA NITROGEN 22 mg/dL (6-20); CALCIUM 9.4 mg/dL (8.5-10.3); CARBON DIOXIDE - CO2 27 mmol/L (21-32); CHLORIDE 105 mmol/L (101-111); CHOLESTEROL 97 mg/dL; CREATININE 0.8 mg/dL (0.6-1.2); GFR - MDRD 95 (>89); GLUCOSE 101 mg/dL (70-100); HDL CHOLESTEROL 49 mg/dL; LDL CHOLESTEROL,CALCULATED 34 mg/dL; LDL/HDL RATIO 0.7 (<3.6); POTASSIUM 4.2 mmol/L (3.5-5.0); SODIUM 140 mmol/L (135-145); TOTAL PROTEIN 7.4 g/dL (6.7-8.2); TRIGLYCERIDES 70 mg/dL; VLDL CHOLESTEROL 14 mg/dL
[2021-11-24 12:39] LABS: ESTIMATED AVERAGE GLUCOSE 111 mg/dL (70-100); HEMOGLOBIN A1c% 5.5 % (4.27-6.07)
[2021-11-24 12:40] LABS: THYROID STIMULATING HORMONE 2.25 uIU/mL (0.34-5.60)
== END 2021-11-24 07:17 | disposition home or self-care (01) ==
LOC: LAB.N 07:16
PROVIDERS: ATTEND Family Medicine
DX: I10 Essential (primary) hypertension (principal); R73.01 Impaired fasting glucose; E03.9 Hypothyroidism, unspecified
CPT/HCPCS: 36415; 80053; 80061; 83036; 83721; 84443; 85025

== ENCOUNTER 2022-11-25 07:40 | Outpatient (CLI) | payer MEDICARE, OTHER ==
[2022-11-25 12:07] LABS: ALBUMIN 4.1 g/dL (3.2-5.5); ALBUMIN/GLOBULIN RATIO 1.3 (1.0-2.2); ALKALINE PHOSPHATASE 65 IU/L (42-121); ALT ALANINE AMINOTRANSFERASE 27 IU/L (10-60); AST ASPARTATE AMINOTRANSFERASE 24 IU/L (10-42); BILIRUBIN,TOTAL 0.8 mg/dL (0.2-1.0); BUN - BLOOD UREA NITROGEN 27 mg/dL (6-20); CARBON DIOXIDE - CO2 28 mmol/L (21-32); CHLORIDE 108 mmol/L (101-111); CHOL/HDL RATIO 2.1 (<5.0); CHOLESTEROL 93 mg/dL; CREATININE 0.9 mg/dL (0.6-1.2); GFR - MDRD 82 (>89); GLUCOSE 109 mg/dL (70-100); HDL CHOLESTEROL 44 mg/dL; LDL CHOLESTEROL,CALCULATED 29 mg/dL; LDL/HDL RATIO 0.7 (<3.6); POTASSIUM 4.2 mmol/L (3.5-5.0); SODIUM 142 mmol/L (135-145); TOTAL PROTEIN 7.3 g/dL (6.7-8.2); TRIGLYCERIDES 99 mg/dL; VLDL CHOLESTEROL 20 mg/dL
[2022-11-25 12:10] LABS: BASOPHILS # (AUTO) 0.1 10^3/uL (0.0-0.1); BASOPHILS % (AUTO) 1.3 %; EOSINOPHILS # (AUTO) 0.2 10^3/uL (0.0-0.7); EOSINOPHILS % (AUTO) 3.3 %; HCT - HEMATOCRIT 45.3 % (42.0-52.0); HGB - HEMOGLOBIN 15.2 g/dL (14.0-18.0); LYMPHOCYTES # (AUTO) 1.3 10^3/uL (1.5-3.5); LYMPHOCYTES % (AUTO) 24.7 %; MEAN CORPUSCULAR HEMOGLOBIN 30.3 pg (27.0-31.0); MEAN CORPUSCULAR HGB CONC 33.6 g/dL (32.0-36.0); MEAN CORPUSCULAR VOLUME 90.4 fL (80.0-94.0); MEAN PLATELET VOLUME 10.8 fL (7.4-11.4); MONOCYTES # (AUTO) 0.7 10^3/uL (0.0-1.0); MONOCYTES % (AUTO) 12.5 %; NEUTROPHILS # (AUTO) 3.1 10^3/uL (1.5-6.6); NEUTROPHILS % (AUTO) 57.5 %; PLT - PLATELET COUNT 194 10^3/uL (130-450); RED BLOOD COUNT 5.01 10^6/uL (4.70-6.10); RED CELL DISTRIBUTION WIDTH 12.8 % (12.0-15.0); WHITE BLOOD COUNT 5.4 x10^3/uL (4.8-10.8)
[2022-11-25 12:20] LABS: ESTIMATED AVERAGE GLUCOSE 114 mg/dL (70-100); HEMOGLOBIN A1c% 5.6 % (4.27-6.07)
[2022-11-25 12:31] LABS: THYROID STIMULATING HORMONE 3.14 uIU/mL (0.34-5.60)
== END 2022-11-25 07:41 | disposition home or self-care (01) ==
LOC: LAB.N 07:40
PROVIDERS: ATTEND Nurse Practitioner Family
DX: I10 Essential (primary) hypertension (principal); E66.01 Morbid (severe) obesity due to excess calories; E03.9 Hypothyroidism, unspecified; E78.5 Hyperlipidemia, unspecified
CPT/HCPCS: 36415; 80053; 80061; 83036; 83721; 84443; 85025

== ENCOUNTER 2023-12-05 07:10 | Outpatient (CLI) | payer MEDICARE, OTHER ==
[2023-12-05 12:24] LABS: ESTIMATED AVERAGE GLUCOSE 108 mg/dL (70-100); HEMOGLOBIN A1c% 5.4 % (4.27-6.07)
[2023-12-05 12:29] LABS: BUN - BLOOD UREA NITROGEN 15 mg/dL (6-20); CALCIUM 9.6 mg/dL (8.5-10.3); CARBON DIOXIDE - CO2 30 mmol/L (21-32); CHLORIDE 103 mmol/L (101-111); CHOL/HDL RATIO 2.1 (<5.0); CHOLESTEROL 87 mg/dL; CREATININE 0.9 mg/dL (0.6-1.3); GFR - MDRD 82 (>89); GLUCOSE 105 mg/dL (74-104); HDL CHOLESTEROL 42 mg/dL; LDL CHOLESTEROL,CALCULATED 19 mg/dL; LDL/HDL RATIO 0.5 (<3.6); POTASSIUM 4.1 mmol/L (3.5-4.5); SODIUM 137 mmol/L (135-145); TRIGLYCERIDES 130 mg/dL; VLDL CHOLESTEROL 26 mg/dL
== END 2023-12-05 07:11 | disposition home or self-care (01) ==
LOC: LAB.N 07:10
PROVIDERS: ATTEND Nurse Practitioner Family
DX: I10 Essential (primary) hypertension (principal); E78.5 Hyperlipidemia, unspecified; E66.01 Morbid (severe) obesity due to excess calories; Z12.5 Encounter for screening for malignant neoplasm of prostate; E03.9 Hypothyroidism, unspecified
CPT/HCPCS: 36415; 80048; 80061; 83036; 84443; G0103; 83721; 84153